=== PATIENT | female | born 1960 | race Caucasian/White ===

== ENCOUNTER → 2019-10-10 16:51 | Outpatient (BNVA) | payer OTHER, SELFPAY | PROVIDERS: Family Provider Family Medicine; PCP Family Medicine; Visit Provider Registered Nurse | DX: Z79.899 Other long term (current) drug therapy (principal) | CPT/HCPCS: 80061; 83036 ==

== ENCOUNTER 2019-11-06 05:55 | Day surgery (SDC) | payer MEDICARE, MEDICAID, SELFPAY ==
[2019-10-15 13:51] VITALS: BP 124/78; BMI 36.3
[2019-11-05 09:33] VITALS: BMI 35.9
[2019-11-06 06:21] VITALS: BP 119/73; PULSE 70; RESP 16; TEMP 36.6; O2SAT 98
[2019-11-06] MEDS: sodium chloride 0.9% 1,000 ML 30 ML (06:23)
--- NOTE | 2019-11-06 06:43 | ANES.PREANE2 ---
Pre-Anesthetic Assessment Pre-Anesthetic Assessment: Height/Weight: Height 1.66 m Weight 99.337 kg Temp Pulse Resp BP Pulse Ox 97.8 F 70 16 119/73 98 11/06/19 06:21 11/06/19 06:21 11/06/19 06:21 11/06/19 06:21 11/06/19 06:21 Preop Diagnosis: Persistent GERD Proposed Procedure: Operation Date: 11/06/19 07:00 Proposed Procedures p EGD(Not Applicable) - Dane Wilson MD Familial anesthetic complications: none Was Beta Toño taken within 24 hours: N/A Last intake: Intake Last Liquid Date 11/05/19 Last Liquid Time 20:00 Last Solid Date 11/05/19 Last Solid Time 20:00 Social: Social History: Tobacco (Quit in 2006) Exam: Pre-Anes Outpt Exam: alert, oriented x 3 and clear to auscultation bilaterally Airway: MP: 3 History/ROS: No significant history except as noted Pulmonary: Pulmonary: Sleep apnea (CPAP) CV/HEM: CV/HEM: HTN : : None reported Comments: bladder stimulator, for urinary retention placed 6 months ago Hepatic: Hepatic: None reported GI: GI: GERD Metabolic: Metabolic: Morbid obesity and Thyroid Musc/skel: Musc/skel: None reported Neuropsych: Neuropsych: CVA (2011, PTSD) and Seizure (2017 ) Anesthetic Plan: ASA status: 3 Anesthesia: Anesthesia Evaluation and MAC Risk of > 500 ml blood loss (7ml/kg in children): No PFSH Anesthesia PFSH: Social History Smoking and tobacco status: former smoker Quit status (tobacco): has quit using tobacco Second hand smoke exposure: No Smoking risk assessment/counseling performed?: No Alcohol intake: never Adopted: No Caregiver/support person: No Lives independently: Yes Marital status: Single Current occupational status: disabled History of recent travel: No Current gender identity: Female Data Anesthesia Cardiac Studies: No Data to Display
--- NOTE | 2019-11-06 06:54 | PM.HPUD ---
H&P update H&P Update: DATE OF SURGERY/PROCEDURE: 11/06/19 DATE H&P PERFORMED: 10/23/19 H&P UPDATE INFORMATION: H&P completed within last 30 days and No changes to prior documentation PREOP DIAGNOSIS: Persistent GERD PRIMARY INDICATION FOR PROCEDURE: The same PLANNED PROCEDURE: Operation Date: 11/06/19 07:00 Proposed Procedures p EGD(Not Applicable) - Dane Wilsno MD Full H&P Perinent History: Medical/Surgical History: Medical History (Updated 10/24/19 @ 17:06 by Dane Wilson MD) Depression (Acute) Disorder of bladder function (Acute) GERD (gastroesophageal reflux disease) (Acute) Hypercholesterolemia (Acute) Hypothyroidism (Acute) Neuropathy (Acute) PTSD (post-traumatic stress disorder) (Acute) Restless legs (Acute) Sleep apnea (Acute) Vitamin D deficiency (Acute) Family History: Family History (Updated 10/23/19 @ 15:07 by Melia Garcia LPN) Mother CAD (coronary artery disease) Brother CAD (coronary artery disease) Grandfather Diabetes Denies family history of Anesthesia complication Bleeding disorder Social History: Social History Smoking and tobacco status: former smoker Quit status (tobacco): has quit using tobacco Second hand smoke exposure: No Smoking risk assessment/counseling performed?: No Alcohol intake: never Adopted: No Caregiver/support person: No Lives independently: Yes Marital status: Single Current occupational status: disabled History of recent travel: No Current gender identity: Female
[2019-11-06 07:19] VITALS: BP 110/73; PULSE 73; RESP 16; TEMP 36.1; O2SAT 98
[2019-11-06 07:29] VITALS: BP 127/74; PULSE 77; RESP 16; O2SAT 100
--- NOTE | 2019-11-06 07:32 | ANE.PACU2 ---
 Inpatient post-anesthesia follow up: Airway intact: Yes Vital signs: Temperature 97 F Pulse Rate 73 Respiratory Rate 16 Blood Pressure 110/73 Pulse Oximetry 98 Oxygen Delivery Me thod Nasal Cannula Oxygen Flow Rate 3 Fraction of Inspir ed Oxygen Hydration adequate: Yes Nausea and vomiting: No Pain level: 2 Mental status: Baseline
[2019-11-06 07:40] VITALS: BP 122/80; PULSE 72; RESP 16; O2SAT 100
[2019-11-07 13:12] LABS: H. Pylori / CLO Test Negative
== END 2019-11-06 07:45 | disposition home or self-care (01) ==
PROVIDERS: Family Provider Family Medicine; PCP Family Medicine; Visit Provider Surgery
PROC: 0DJ08ZZ Inspection of Upper Intestinal Tract, Via Natural or Artificial Opening Endoscopic (ICD-10-PCS; CPT 43235; principal; 2019-11-06 07:00)
DX: K21.9 Gastro-esophageal reflux disease without esophagitis (principal); K29.70 Gastritis, unspecified, without bleeding; E78.00 Pure hypercholesterolemia, unspecified; E03.9 Hypothyroidism, unspecified; G47.30 Sleep apnea, unspecified; Z82.49 Family history of ischemic heart disease and other diseases of the circulatory system; Z83.3 Family history of diabetes mellitus; Z87.891 Personal history of nicotine dependence; Z79.82 Long term (current) use of aspirin
CPT/HCPCS: 12345; 43239; 87077; J2001; J2704; J7030

== ENCOUNTER → 2020-01-02 08:42 | Outpatient (BNVA) | payer MEDICARE, MEDICAID, SELFPAY | PROVIDERS: Family Provider Family Medicine; PCP Family Medicine; Visit Provider Family Medicine | DX: I10 Essential (primary) hypertension (principal) | CPT/HCPCS: 80048 ==

== ENCOUNTER → 2020-05-21 10:45 | Outpatient (BNVA) | payer MEDICARE, MEDICAID, SELFPAY ==
[2019-10-15 13:51] VITALS: BP 124/78; BMI 36.3
== END ==
PROVIDERS: Family Provider Family Medicine; PCP Family Medicine; Visit Provider Family Medicine
DX: E03.9 Hypothyroidism, unspecified (principal); R60.0 Localized edema; K29.70 Gastritis, unspecified, without bleeding; I10 Essential (primary) hypertension; R73.03 Prediabetes; M51.16 Intervertebral disc disorders with radiculopathy, lumbar region; F41.1 Generalized anxiety disorder; K21.0 Gastro-esophageal reflux disease with esophagitis; G25.81 Restless legs syndrome
CPT/HCPCS: 80053; 83036; 84439; 84443; 84481

== ENCOUNTER → 2020-08-26 09:58 | Outpatient (BNVA) | payer MEDICARE, SELFPAY ==
[2019-10-15 13:51] VITALS: BP 124/78; BMI 36.3
== END ==
PROVIDERS: Family Provider Family Medicine; PCP Family Medicine; Visit Provider Family Medicine
DX: I10 Essential (primary) hypertension (principal); M51.16 Intervertebral disc disorders with radiculopathy, lumbar region; K29.70 Gastritis, unspecified, without bleeding; R60.0 Localized edema; E03.9 Hypothyroidism, unspecified; E78.00 Pure hypercholesterolemia, unspecified; E11.9 Type 2 diabetes mellitus without complications
CPT/HCPCS: 80053; 80061; 83036; 84443

== ENCOUNTER → 2021-01-12 11:19 | Outpatient (BNVA) | payer MEDICARE, SELFPAY ==
[2019-10-15 13:51] VITALS: BP 124/78; BMI 36.3
== END ==
PROVIDERS: Family Provider Family Medicine; PCP Family Medicine; Visit Provider Family Medicine
DX: E55.9 Vitamin D deficiency, unspecified (principal); I10 Essential (primary) hypertension; E03.9 Hypothyroidism, unspecified; M51.16 Intervertebral disc disorders with radiculopathy, lumbar region; G25.81 Restless legs syndrome; R73.03 Prediabetes; R53.83 Other fatigue; J44.9 Chronic obstructive pulmonary disease, unspecified; R60.0 Localized edema; E87.6 Hypokalemia; K29.30 Chronic superficial gastritis without bleeding
CPT/HCPCS: 80053; 82652; 83036; 83540; 84443; 85025

== ENCOUNTER → 2021-02-15 12:01 | Outpatient (BNVA) | payer MEDICARE, SELFPAY ==
[2019-10-15 13:51] VITALS: BP 124/78; BMI 36.3
== END ==
PROVIDERS: Family Provider Family Medicine; PCP Family Medicine; Visit Provider Family Medicine
DX: I10 Essential (primary) hypertension (principal); K29.70 Gastritis, unspecified, without bleeding; G25.81 Restless legs syndrome; E03.9 Hypothyroidism, unspecified; E55.9 Vitamin D deficiency, unspecified; Z79.899 Other long term (current) drug therapy
CPT/HCPCS: 80053; 83540; 84443

== ENCOUNTER → 2021-03-08 10:40 | Outpatient (BNVA) | payer MEDICARE, SELFPAY ==
[2019-10-15 13:51] VITALS: BP 124/78; BMI 36.3
== END ==
PROVIDERS: Family Provider Family Medicine; PCP Family Medicine; Referring Provider Family Medicine; Visit Provider Family Medicine
DX: I10 Essential (primary) hypertension (principal); R60.0 Localized edema
CPT/HCPCS: 80048

== ENCOUNTER → 2021-04-13 10:45 | Outpatient (BNVA) | payer MEDICARE, SELFPAY ==
[2019-10-15 13:51] VITALS: BP 124/78; BMI 36.3
== END ==
PROVIDERS: Family Provider Family Medicine; PCP Family Medicine; Visit Provider Family Medicine
DX: M51.16 Intervertebral disc disorders with radiculopathy, lumbar region (principal); N32.81 Overactive bladder; Z79.899 Other long term (current) drug therapy
CPT/HCPCS: 81000; 87086

== ENCOUNTER 2021-04-26 15:38 | Outpatient (CLI) | payer MEDICARE, MEDICAID, SELFPAY ==
[2019-10-15 13:51] VITALS: BP 124/78; BMI 36.3
--- NOTE | 2021-04-26 16:00 | MR_ITS ---
WS: [id number] MRI LUMBAR SPINE NONCONTRAST HISTORY: M51.16 - Intervertebral disc disorders with radiculopathy... COMPARISON: None available. TECHNIQUE: Sagittal and axial multisequence imaging is submitted. Mild increase in the thoracic kyphosis. Very slight straightening of the normal lumbar lordosis. No marrow edema or fractures. Mild disc space narrowing and desiccation. Conus terminates normally at L1-2 disc level. L1-L2: Normal. L2-L3: Normal. L3-L4: Mild annular disc bulging with ligamentum flavum and facet joint arthritis. Small amount of fl uid in the RIGHT facet joint. Very slight encroachment and narrowing of the LEFT foramen. L4-L5: Diffuse annular disc bulging with moderate ligamentum flavum and facet arthritis with fluid in the facet joints. Narrowing of the central canal and subarticular foramen and mild bilateral foramin al stenosis. There is a small RIGHT foraminal disc protrusion which does not appear to be contacting the nerve roots. L5-S1: Diffuse annular disc bulging with moderate ligamentum flavum hypertrophy and facet arthritis. Moderate LEFT and mild RIGHT foraminal stenosis. Mild bilateral subarticular recess stenosis. Increas e fluid in the facet joints bilaterally. 3.2 cm cystic mass in the LEFT adnexa. Incompletely visualized. For further evaluation transvaginal p elvic ultrasound could be obtained. MR/MR lumbar spine wo con* [id number] IMPRESSION: 1. Degenerative disc disease and facet arthritis is most significant at L4-5 a nd L5-S1. 2. Moderate RIGHT foraminal stenosis at L5-S1 due to combination of disc disea se and facet arthritis. 3. Mild bilateral subarticular recess and RIGHT foraminal stenosis at L5-S1. 4. Mild central and bilateral subarticular recess and foraminal stenosis at L4 -5. 5. Small disc protrusion in the RIGHT L4-5 foramen but no contact on the nerve root.
== END 2021-04-26 15:39 | disposition home or self-care (01) ==
LOC: RADSHAW 15:42
PROVIDERS: PCP Family Medicine; Visit Provider Family Medicine
DX: M51.16 Intervertebral disc disorders with radiculopathy, lumbar region (principal); M51.36 Other intervertebral disc degeneration, lumbar region; M47.816 Spondylosis without myelopathy or radiculopathy, lumbar region; M47.817 Spondylosis without myelopathy or radiculopathy, lumbosacral region; M48.07 Spinal stenosis, lumbosacral region; M51.26 Other intervertebral disc displacement, lumbar region
CPT/HCPCS: 72148

== ENCOUNTER → 2021-05-20 08:00 | Outpatient (BNVA) | payer MEDICARE, MEDICAID, SELFPAY ==
[2019-10-15 13:51] VITALS: BP 124/78; BMI 36.3
== END ==
PROVIDERS: PCP Family Medicine; Referring Provider Family Medicine; Visit Provider Anesthesiology Pain Medicine
DX: G89.29 Other chronic pain (principal); M51.16 Intervertebral disc disorders with radiculopathy, lumbar region; M47.816 Spondylosis without myelopathy or radiculopathy, lumbar region; M46.00 Spinal enthesopathy, site unspecified; F17.210 Nicotine dependence, cigarettes, uncomplicated; Z79.891 Long term (current) use of opiate analgesic
CPT/HCPCS: 99204

== ENCOUNTER → 2021-06-01 13:32 | Outpatient (BNVA) | payer MEDICARE, MEDICAID, SELFPAY ==
[2019-10-15 13:51] VITALS: BP 124/78; BMI 36.3
== END ==
PROVIDERS: PCP Family Medicine; Visit Provider Anesthesiology Pain Medicine
DX: M47.816 Spondylosis without myelopathy or radiculopathy, lumbar region (principal)
CPT/HCPCS: 64493; 64494; 64495; J3490

== ENCOUNTER → 2021-06-15 09:43 | Outpatient (BNVA) | payer MEDICARE, MEDICAID, SELFPAY ==
[2019-10-15 13:51] VITALS: BP 124/78; BMI 36.3
== END ==
PROVIDERS: PCP Family Medicine; Visit Provider Anesthesiology Pain Medicine
DX: M47.816 Spondylosis without myelopathy or radiculopathy, lumbar region (principal); M51.16 Intervertebral disc disorders with radiculopathy, lumbar region; M46.00 Spinal enthesopathy, site unspecified; F17.210 Nicotine dependence, cigarettes, uncomplicated
CPT/HCPCS: 99214

== ENCOUNTER → 2021-06-22 13:25 | Outpatient (BNVA) | payer MEDICARE, MEDICAID, SELFPAY ==
[2019-10-15 13:51] VITALS: BP 124/78; BMI 36.3
== END ==
PROVIDERS: PCP Family Medicine; Visit Provider Anesthesiology Pain Medicine
DX: M47.816 Spondylosis without myelopathy or radiculopathy, lumbar region (principal)
CPT/HCPCS: 64635; 64636

== ENCOUNTER → 2021-08-09 10:46 | Outpatient (BNVA) | payer MEDICARE, MEDICAID, SELFPAY ==
[2019-10-15 13:51] VITALS: BP 124/78; BMI 36.3
== END ==
PROVIDERS: PCP Family Medicine; Visit Provider Family Medicine
DX: R53.83 Other fatigue (principal); E55.9 Vitamin D deficiency, unspecified; E78.00 Pure hypercholesterolemia, unspecified; E11.9 Type 2 diabetes mellitus without complications; I10 Essential (primary) hypertension
CPT/HCPCS: 80053; 80061; 82652; 83036; 84443

== ENCOUNTER → 2022-03-01 08:54 | Outpatient (BNVA) | payer MEDICARE, MEDICAID, SELFPAY ==
[2019-10-15 13:51] VITALS: BP 124/78; BMI 36.3
== END ==
PROVIDERS: PCP Family Medicine; Visit Provider Family Medicine
DX: N32.81 Overactive bladder (principal); N39.41 Urge incontinence; G25.81 Restless legs syndrome; E87.6 Hypokalemia; K29.70 Gastritis, unspecified, without bleeding; I10 Essential (primary) hypertension; E03.9 Hypothyroidism, unspecified; R60.0 Localized edema; E55.9 Vitamin D deficiency, unspecified; M51.16 Intervertebral disc disorders with radiculopathy, lumbar region; R73.03 Prediabetes; F17.200 Nicotine dependence, unspecified, uncomplicated
CPT/HCPCS: 80053; 81000; 83036; 84443; 87086

== ENCOUNTER → 2022-04-20 09:00 | Outpatient (BNVA) | payer MEDICARE, MEDICAID, OTHER, SELFPAY ==
[2019-10-15 13:51] VITALS: BP 124/78; BMI 36.3
== END ==
PROVIDERS: PCP Family Medicine; Visit Provider Family Medicine
DX: E87.1 Hypo-osmolality and hyponatremia (principal)
CPT/HCPCS: 80048

== ENCOUNTER → 2022-07-28 10:58 | Outpatient (BNVA) | payer OTHER, MEDICAID, SELFPAY ==
[2019-10-15 13:51] VITALS: BP 124/78; BMI 36.3
== END ==
PROVIDERS: PCP Family Medicine; Visit Provider Family Medicine
DX: G25.81 Restless legs syndrome (principal); E87.6 Hypokalemia; N32.81 Overactive bladder; F41.1 Generalized anxiety disorder; F43.12 Post-traumatic stress disorder, chronic; F33.2 Major depressive disorder, recurrent severe without psychotic features; K29.70 Gastritis, unspecified, without bleeding; I10 Essential (primary) hypertension; E03.9 Hypothyroidism, unspecified; R60.0 Localized edema; J44.0 Chronic obstructive pulmonary disease with (acute) lower respiratory infection; G47.00 Insomnia, unspecified; J20.9 Acute bronchitis, unspecified; M51.16 Intervertebral disc disorders with radiculopathy, lumbar region; J44.9 Chronic obstructive pulmonary disease, unspecified; E87.1 Hypo-osmolality and hyponatremia; E11.9 Type 2 diabetes mellitus without complications; R73.03 Prediabetes; E78.00 Pure hypercholesterolemia, unspecified
CPT/HCPCS: 71046; 80061; 83036; 84439; 84443; 84481; 85025

== ENCOUNTER → 2022-09-14 08:36 | Outpatient (BNVA) | payer OTHER, MEDICAID, SELFPAY ==
[2019-10-15 13:51] VITALS: BP 124/78; BMI 36.3
== END ==
PROVIDERS: PCP Family Medicine; Visit Provider Family Medicine
DX: E87.1 Hypo-osmolality and hyponatremia (principal); E87.6 Hypokalemia; I10 Essential (primary) hypertension; Z09 Encounter for follow-up examination after completed treatment for conditions other than malignant neoplasm; J44.0 Chronic obstructive pulmonary disease with (acute) lower respiratory infection; J20.9 Acute bronchitis, unspecified; F33.2 Major depressive disorder, recurrent severe without psychotic features; F43.12 Post-traumatic stress disorder, chronic; F41.1 Generalized anxiety disorder
CPT/HCPCS: 80048; 83735

== ENCOUNTER → 2022-09-28 09:46 | Outpatient (BNVA) | payer OTHER, MEDICAID, SELFPAY ==
[2019-10-15 13:51] VITALS: BP 124/78; BMI 36.3
== END ==
PROVIDERS: PCP Family Medicine; Visit Provider Family Medicine
DX: E87.1 Hypo-osmolality and hyponatremia (principal); J44.0 Chronic obstructive pulmonary disease with (acute) lower respiratory infection; J20.9 Acute bronchitis, unspecified; E87.6 Hypokalemia; I10 Essential (primary) hypertension
CPT/HCPCS: 80048

== ENCOUNTER → 2022-10-18 10:58 | Outpatient (BNVA) | payer OTHER, MEDICAID, SELFPAY ==
[2019-10-15 13:51] VITALS: BP 124/78; BMI 36.3
== END ==
PROVIDERS: PCP Family Medicine; Visit Provider Family Medicine
DX: R60.0 Localized edema (principal); E87.1 Hypo-osmolality and hyponatremia; M79.672 Pain in left foot; M79.671 Pain in right foot; B07.0 Plantar wart
CPT/HCPCS: 80048; 80053

== ENCOUNTER 2022-10-28 06:00 | Outpatient (RCR) | payer MEDICARE, MEDICAID, SELFPAY ==
[2019-10-15 13:51] VITALS: BP 124/78; BMI 36.3
== END 2022-11-22 23:59 | disposition home or self-care (01) ==
LOC: MOT 06:00
PROVIDERS: PCP Family Medicine; Visit Provider Family Medicine
DX: R60.0 Localized edema (principal)
CPT/HCPCS: 97140; 97166

== ENCOUNTER → 2022-11-04 08:40 | Outpatient (BNVA) | payer OTHER, MEDICAID, SELFPAY ==
[2019-10-15 13:51] VITALS: BP 124/78; BMI 36.3
== END ==
PROVIDERS: PCP Family Medicine; Visit Provider Podiatrist Foot & Ankle Surgery
DX: Q82.8 Other specified congenital malformations of skin (principal); M20.32 Hallux varus (acquired), left foot; M20.41 Other hammer toe(s) (acquired), right foot; M20.42 Other hammer toe(s) (acquired), left foot; B35.1 Tinea unguium
CPT/HCPCS: 73630

== ENCOUNTER → 2022-11-18 09:30 | Outpatient (BNVA) | payer MEDICAID, SELFPAY ==
[2019-10-15 13:51] VITALS: BP 124/78; BMI 36.3
== END ==
PROVIDERS: PCP Family Medicine; Visit Provider Podiatrist Foot & Ankle Surgery
DX: Q82.8 Other specified congenital malformations of skin (principal); M20.30 Hallux varus (acquired), unspecified foot; M20.41 Other hammer toe(s) (acquired), right foot; M20.42 Other hammer toe(s) (acquired), left foot; B35.1 Tinea unguium
CPT/HCPCS: 99214

== ENCOUNTER 2024-04-26 10:40 | Emergency (ER) | payer MEDICARE, MEDICAID, SELFPAY ==
[2019-10-15 13:51] VITALS: BP 124/78; BMI 36.3
[2024-04-26 10:42] VITALS: BP 127/60; PULSE 70; RESP 20; TEMP 36.5; O2SAT 98; BMI 35.6
--- NOTE | 2024-04-26 10:45 | XR_ITS ---
WS: [id number] Portable AP upright chest, 04/26/2024 Clinical Data: dyspnea/cough Comparison: Two-view chest, 07/28/2022 Findings: There is a patchy opacity in the left lower lobe which could represent atelectasis, effusio n and/or minimal pneumonia. No nodules, masses or effusions are seen. The heart is normal. The pulmon evelyne vascularity is not increased. No pneumonia or pneumothorax is seen. There are monitor leads on th e chest wall. XR/XR chest 1V portable [id number] Impression: Minimal patchy opacity overlying lateral aspect of left diaphragm which could i ndicate atelectasis, effusion and/or minimal pneumonia.
--- NOTE | 2024-04-26 10:47 | ECG_ITS ---
[facility] Test Date: 2024-04-26 Pat Name: Kirsty Lee Department: Room: Gender: Female Head Teacher: : 1960 Requested By: Shaun James Order Number: [id number] Roxane MD: George Reynolds M.D. Measurements Intervals [place] Rate: 71 P: 45 IN: 157 QRS: -9 QRSD: 89 T: 49 QT: 404 QTc: 441 Interpretive Statements SINUS RHYTHM LOW QRS VOLTAGE IN PRECORDIAL LEADS [QRS DEFLECTION < 1.0 mV IN CHEST LEADS] PATTERN CONSISTENT WITH PULMONARY DISEASE Compared to ECG 01/29/2018 14:15:40 Low QRS voltage now present T-wave abnormality no longer present Electronically Signed On 04-26-2024 17:34:43 CDT by George Reynolds M.D. [id number]
--- NOTE | 2024-04-26 11:05 | W.ED.CHESTPA ---
HPI - Chest Pain General: Chief Complaint: Chest Pain Stated Complaint: cp Time Seen by Provider: 04/26/24 10:44 History of Present Illness: 64-year-old female presents emergency room with episode and is SVT. She was given Identicard by EMS she had reverted to a normal sinus rhythm by time she arrived having no further symptoms. She does drink a fair amount of caffeine chills been in and out of air conditioning and out in the heat quite a little bit recently. The last episode she had a breakthrough was over a year ago. She is on Cardizem to 40 once a day that has not changed she has not missed any doses Associated symptoms: Deny abdominal pain, dyspnea or fever(s) Review of Systems Const: Denies: fever(s) or chills Card: Denies: chest pain Resp: Denies: dyspnea GI: Denies: abdominal pain : Denies: dysuria, urinary frequency or urinary urgency Musc: Denies: neck pain or back pain Skin/Breast: Denies: rash PFSH ED PFSH: Medical History Nicotine dependence, cigarettes, with withdrawal COPD (chronic obstructive pulmonary disease) with acute bronchitis Nicotine dependence with current use Smoking Chronic pain syndrome Lumbar disc disease with radiculopathy Pedal edema Essential hypertension Major neurocognitive disorder post-CVA Generalized anxiety disorder Chronic post-traumatic stress disorder Major depressive disorder, recurrent severe without psychotic features Hypercholesterolemia Sleep apnea Depression PTSD (post-traumatic stress disorder) Vitamin D deficiency Hypothyroidism Neuropathy GERD (gastroesophageal reflux disease) Restless legs Disorder of bladder function Surgical History H/O bladder repair surgery implanted pacemaker device H/O: hysterectomy Hx of cholecystectomy H/O foot surgery bilateral Hx of tonsillectomy History of appendectomy H/O colonoscopy 2 yrs ago [facility] Family History Mother CAD (coronary artery disease) Brother CAD (coronary artery disease) Grandfather Diabetes Sister Myocardial infarction Denies family history of Anesthesia complication Bleeding disorder Social History Smoking and tobacco/nicotine status: current every day tobacco/nicotine user Quit status (tobacco/nicotine): has quit using Second hand smoke exposure: No Alcohol intake: never Substance/Drug Use: never Adopted: No Caregiver/support person: No Lives independently: Yes Marital status: Single Current occupational status: disabled Current gender identity: Female Female Reproductive History: Spontaneous abortions: No Physical Exam Const: GENERAL APPEARANCE: cooperative and comfortable ORIENTATION/CONSCIOUSNESS: Yes awake, Yes oriented to person, Yes oriented to place and Yes oriented to time HENMT: COMMON NORMALS: normocephalic, atraumatic and hearing grossly normal bilaterally HEAD & SCALP: normocephalic and atraumatic Resp: COMMON NORMALS: normal respiratory effort, No retractions, No use of accessory muscles and clear to auscultation bilaterally AUSCULTATION: clear to auscultation bilaterally Cardio: COMMON NORMALS: regular rate, regular rhythm and No murmurs present (Cardio) RATE: regular rate RHYTHM: regular rhythm GI: COMMON NORMALS: Soft to palpation and No hepatosplenomegaly present AUSCULTATION: Yes normoactive bowel sounds PALPATION: Yes Soft to palpation, No Tenderness to palpation present (GI), No Guarding due to palpation present (GI) and Yes No hepatosplenomegaly present Extremity: COMMON NORMALS: normal to inspection, capillary refill normal, no clubbing, cyanosis or edema, no calf tenderness and no pedal edema Neuro: SENSORIUM/ORIENTATION: Yes oriented to person, Yes oriented to place and Yes oriented to time Skin: COMMON NORMALS: no rashes or lesions noted GENERAL SKIN EXAM: no rashes or lesions noted Course Vital Signs: Vital signs: Vital Signs Temperature 97.7 F 04/26/24 10:42 Pulse Rate 84 04/26/24 16:29 Respiratory Rate 24 H 04/26/24 16:29 Blood Pressure 162/90 04/26/24 16:29 Pulse Oximetry 96 04/26/24 16:29 Oxygen Delivery Me thod Room Air 04/26/24 10:42 MDM - Chest Pain Medical Decision Making Initially patient presented she is complaining of some weakness on the right side that was about an hour prior. When she seen Dr. Parks after the stroke alert had been called she states she woke up with it. In either event her symptoms are completely resolved. Her NIH score for Dr. Parks and Duglas was 0. Cardiac enzymes and EKG did not show any acute abnormality discharge patient home set her up for an outpatient MRI as well as Lexiscan sestamibi stress test. Lab Data 04/26/24 12:07 04/26/24 12:07 Radiology Impressions Chest X-Ray 04/26/24 10:45 Impression: Minimal patchy opacity overlying lateral aspect of left diaphragm which could indicate atelectasis, effusion and/or minimal pneumonia. Head CT 04/26/24 11:11 IMPRESSION: 1. No evidence of intracranial hemorrhage or mass effect. 2. No acute intracranial findings. Notified Shaun Downey DO at 04/26/2024 11:25 AM. Laboratory Results WBC 7.81 10^3/uL (3.29-11.43) 04/26/24 12:07 RBC 4.87 10^6/uL (3.85-5.65) 04/26/24 12:07 Hgb 10.90 g/dL (11.27-16.99) L 04/26/24 12:07 Hct 35.5 % (36-47) L 04/26/24 12:07 MCV 72.9 fl (85-98) L 04/26/24 12:07 MCH 22.4 pg (27-33) L 04/26/24 12:07 MCHC 30.7 g/dL (30-55) 04/26/24 12:07 RDW 19.4 % (12.1-15.1) H 04/26/24 12:07 Plt Count 272 10^3/cmm (157-399) 04/26/24 12:07 MPV 9.8 fL (7.4-10.4) 04/26/24 12:07 Neut % (Auto) 70.5 % 04/26/24 12:07 Lymph % (Auto) 22.0 % 04/26/24 12:07 [place] % (Auto) 5.4 % 04/26/24 12:07 Eos % (Auto) 1.0 % 04/26/24 12:07 Baso % (Auto) 0.8 % 04/26/24 12:07 Neut # (Auto) 5.51 10^3/uL (1.8-7.7) 04/26/24 12:07 Lymph # (Auto) 1.7 10^3/uL (0.8-4.8) 04/26/24 12:07 Jess[place] # (Auto) 0.4 10^3/uL (0.2-0.9) 04/26/24 12:07 Eos # (Auto) 0.1 10^3/uL (0.0-0.8) 04/26/24 12:07 Baso # (Auto) 0.1 10^3/uL (0.0-0.1) 04/26/24 12:07 Nucleated RBC % (auto) 0 % 04/26/24 12:07 Nucleated RBCs # 0.0 /100WBC 04/26/24 12:07 PT 12.20 SECONDS (12.1-14.9) 04/26/24 12:07 INR 0.88 (0.8-1.2) 04/26/24 12:07 APTT 19.7 SECONDS (23.9-36.7) L 04/26/24 12:07 Sodium 134 mmol/L (136-145) L 04/26/24 12:07 Potassium 4.1 mmol/L (3.5-5.1) 04/26/24 12:07 Chloride 98 mmol/L (98-107) 04/26/24 12:07 Carbon Dioxide 23 mmol/L (22-29) 04/26/24 12:07 Anion Gap 17.1 (5-19) 04/26/24 12:07 BUN 10 mg/dL (8-23) 04/26/24 12:07 Creatinine 0.7 mg/dL (0.5-0.9) 04/26/24 12:07 GFR Calculation 83.7 mL/min (90-130) L 04/26/24 12:07 Glucose 105 mg/dL (65-115) 04/26/24 12:07 POC Glucose 209 mg/dL (70-110) H 04/26/24 11:23 Calculated Osmolality 277 mOsm/kg (285-295) L 04/26/24 12:07 Calcium 8.9 mg/dL (8.5-10.5) 04/26/24 12:07 Total Bilirubin 0.2 mg/dL (0.15-1.2) 04/26/24 12:07 AST 16 U/L (0-32) 04/26/24 12:07 ALT 22 U/L (0-33) 04/26/24 12:07 Alkaline Phosphatase 141 U/L (35-105) H 04/26/24 12:07 Troponin T Baseline 15 ng/L (0-10) H 04/26/24 12:07 Troponin T 120 Minute 13.90 ng/L (0-10) H 04/26/24 14:13 Delta Troponin T -1.10 ABS# (0-10) L 04/26/24 14:13 Total Protein 6.6 g/dL (6.6-8.7) 04/26/24 12:07 Albumin 4.2 g/dL (3.5-5.2) 04/26/24 12:07 Globulin 2.4 g/dL (1.3-4.6) 04/26/24 12:07 Urine Color Yellow (Yellow) 04/26/24 11:57 Urine Appearance Clear (CLEAR) 04/26/24 11:57 Urine pH 7.0 (5-7) 04/26/24 11:57 Ur Specific [place] 1.006 (1.005-1.030) 04/26/24 11:57 Urine Protein Negative (Negative) 04/26/24 11:57 Urine Glucose (UA) Negative (Normal) 04/26/24 11:57 Urine Ketones Negative (Negative) 04/26/24 11:57 Urine Blood Negative (Negative) 04/26/24 11:57 Urine Nitrate Negative (Negative) 04/26/24 11:57 Urine Bilirubin Negative (Negative) 04/26/24 11:57 Urine Urobilinogen 0.2 mg/dL (Negative) 04/26/24 11:57 Ur Leukocyte Esterase Negative (Negative) 04/26/24 11:57 Amorphous Sediment Not Reportable 04/26/24 11:57 Urine Opiates Screen Negative ng/mL (Negative) 04/26/24 11:57 Ur Barbiturates Screen Negative ng/mL (Negative) 04/26/24 11:57 Ur Phencyclidine Scrn Negative ng/mL (Negative) 04/26/24 11:57 Ur Amphetamines Screen Negative ng/mL (Negative) 04/26/24 11:57 U Benzodiazepines Scrn Negative ng/mL (Negative) 04/26/24 11:57 Urine Cocaine Screen Negative ng/mL (Negative) 04/26/24 11:57 U Marijuana (THC) Screen Positive ng/mL (Negative) H 04/26/24 11:57 All radiology interpretation(s) finalized by discharge Discharge Plan Discharge Patient Disposition: Home Clinical Impression: Atypical chest pain, TIA (transient ischemic attack) Condition: Stable Prescriptions: New clopidogrel 75 mg tablet 75 mg PO DAILY Qty: 30 0RF atorvastatin 40 mg tablet 40 mg PO DAILY Qty: 30 0RF Discontinued atorvastatin [Lipitor] 20 mg tablet 20 mg PO DAILY 90 Days Qty: 90 3RF No Action aspirin [Adult Aspirin Regimen] 81 mg tablet,delayed release (DR/EC) 81 mg PO DAILY Hold Instructions: Resume on 11/08/19. oxybutynin chloride 10 mg tablet extended release 24hr 10 mg PO DAILY 90 Days Qty: 90 1RF pregabalin 75 mg capsule 75 mg PO TID PRN (Reason: back pain) 30 Days Qty: 90 2RF furosemide 40 mg tablet 40 mg PO BID 90 Days Qty: 180 2RF Rx Instructions: at 8 AM and 12 NOON meclizine 25 mg tablet 25 mg PO TID PRN (Reason: Dizziness Or Vertigo) (DME) Wheel Chair with Left Leg Extension Foot Rest and Regular Right Foot Rest and Arms See Rx Instructions .Route .MEDSUPPLY Qty: 1 0RF Rx Instructions: As directed HOME famotidine 20 mg tablet 40 mg PO BID levothyroxine 50 mcg tablet 50 mcg PO DAILY pramipexole 0.25 mg tablet 0.25 mg PO BEDTIME omeprazole 20 mg capsule,delayed release(DR/EC) 20 mg PO BID metoprolol succinate 25 mg tablet extended release 24 hr 25 mg PO DAILY celecoxib 200 mg capsule 200 mg PO DAILY venlafaxine 75 mg capsule,extended release 24hr 75 mg PO DAILY tramadol 50 mg tablet 50 - 100 mg PO Q6H PRN (Reason: Pain) Ventolin HFA 90 mcg/actuation HFA aerosol inhaler 1 puff INHALATION QID PRN (Reason: Shortness Of Breath) diclofenac sodium 1 % gel 4 g TOPICAL Q12H PRN (Reason: JOINT PAIN) Discharge Orders: Discharge ED (Routine); Ordered 04/26/24 Ordered By: Shaun Downey Referrals: Michelle Russell MD [Physician] - Discharge Diet: Usual diet Discharge Activity: Resume usual activity Patient Instructions: Opioid Safety, Pain Management Activity Restrictions/Additional Instructions: Thank you for choosing [facility] for your healthcare needs today. It is very important that you follow up as instructed or that you return to the Emergency Department should you have concerns or if your condition changes or worsens in any way. You are seen due to chest pain and weakening your left side. I believe the weakening was due to previous stroke. When examined your score was 0 on the NIH scale. Rest of your exam was normal your cardiac enzymes were negative. You were also evaluated by on-call neurology who did not feel that your findings represented a new stroke. Cardiac enzymes and EKG were normal. Coding Level of Care Code ED Recycling Crew Supervisor for Zachary Tay NIH stroke score NIHSS Level Of Consciousness - 1a: 0 Level Of Consciousness Questions - 1b: Both Correct Level Of Consciousness Commands - 1c: Both Correct Best Gaze - 2: Normal Visual Toussaint - 3: No Visual Loss Facial Palsy - 4: Normal Motor Arm Right - 5: No Drift Motor Arm Left - 5: No Drift Motor Leg Right - 6: No Drift Motor Leg Left - 6: No Drift Limb Ataxia - 7: Absent Sensory - 8: Normal Best Language - 9: No Aphasia Dysarthia - 10: Normal Extinction And Inattention - 11: 0 Score Total Score: 0
--- NOTE | 2024-04-26 11:11 | CT_ITS ---
WS: [id number] CT HEAD TECHNIQUE: Noncontrast CT of the head obtained from the skullbase to the vertex. CLINICAL INFORMATION: Symptoms of acute stroke COMPARISON: None. DLP: All [facility] scans at [facility] use at least one of these dose optimization techniques: automated e xposure control; mA and/or kV adjustment per patient size (includes targeted exams where dose is matc hed to clinical indication); or iterative reconstruction. FINDINGS: No evidence of intracranial hemorrhage or mass effect. Ventricular system and basal cisterns are crooks nt. Moderate small vessel changes with mild parenchymal volume loss. No extra-axial fluid collections . No evidence of mass or mass effect. Vascular calcification. Tiny chronic lacunar infarct LEFT cauda te. Paranasal sinuses and mastoid air cells are well aerated. .Normal visualized soft tissues. CT/CT head thrombolytic [id number] IMPRESSION: 1. No evidence of intracranial hemorrhage or mass effect. 2. No acute intracranial findings. Notified Shaun Downey DO at 04/26/2024 11:25 AM.
[2024-04-26 11:25] LABS: Glucose Point of Care 209 mg/dL (70-110)
--- NOTE | 2024-04-26 11:37 | PC.PHAR ---
Addendum entered by Lindsye Dennis 04/26/24 11:38: PT USES [facility] FOR NON MAINTENANCE MEDICATIONS. Original Note: PTS' MED LIST COMPLETED VIA MED LIST VERIFIED WITH MARIANNA, WITH LAST FILL DATES IN PHARMACY NOTES. UNSURE IF PT HAS TAKEN AM MEDS TODAY. WILL FOLLOW UP.
--- NOTE | 2024-04-26 11:59 | P.CONIM_ITS ---
Providers/Reason For Consult Consulting Physician/Specialty*: Santiago Parks MD neurology and epilepsy Reason for Consult*: Code stroke emergency department room #5/acute care History of Present Illness History of Present Illness Kirsty Lee is a 64 year old female with reported history of stroke in 2013. Patient also reports history of bilateral foot surgery with screws in the right foot and amputation of the second digit of the left foot as well as history of chronic arthritis pain in her feet. The patient stated that she went to bed on 04/25/2024 around midnight and woke up on 04/26/2024 around 5:45 AM and noticed she had numbness in the left foot. Patient stated that she went outside to walk her dog but began having more numbness in the left foot as well as left-sided chest pain with left arm numbness. As result the patient presented to the [facility] emergency department. On initial presentation to the emergency department NIH score =2 performed by ER physician. The patient was given nitroglycerin with him improvement in her symptoms NIH score = 0 performed by neurology in the emergency department. Noncontrast head CT reports revealed no acute findings. Glucose 209. Drug allergies: Penicillin which resulted in anaphylaxis Current home medications: Ventolin multidose inhaler 1 puff 4 times a day as needed for shortness of Aspirin 81 mg p.o. daily Lipitor 20 mg p.o. daily Celebrex 200 mg p.o. daily Diclofenac 4 g topical every 12 hours as needed for joint pain Pepcid 40 mg p.o. twice daily Lasix 40 mg p.o. twice daily Synthroid 50 mcg p.o. daily Antivert 25 mg p.o. 3 times daily as needed for dizziness Metoprolol 25 mg p.o. daily Omeprazole 20 mg p.o. twice daily Oxybutynin chloride ER 10 mg p.o. daily Pramipexole 0.25 mg p.o. nightly Lyrica 75 mg p.o. 3 times daily as needed for back pain Tramadol 50 to 100 mg p.o. every 6 hours as needed for pain Effexor 75 mg p.o. daily Past medical history: Bilateral foot surgery with amputation of the second digit of the left foot Chronic low back pain Arthritis Hypothyroidism Remote CVA 2013 Chronic obstructive pulmonary disease Hyponatremia Nicotine dependence Vitamin D deficiency Lumbar disc disease with radiculopathy Restless leg syndrome Hypercholesterolemia Gastroesophageal reflux disease Prediabetes Essential hypertension Major neurocognitive disorder Generalized anxiety disorder Chronic posttraumatic stress disorder Major depressive disorder recurrent severe without psychotic features Gastritis Habits: The patient smokes 1 pack/day. She denied other drug use. Patient educated on the potential health risks associated with smoking. Patient aware of the potential health risks associated with smoking. Social history: Patient lives alone Family history: Remarkable for sister who of a massive heart attack Review of Systems General: Reports: 10 or more systems reviewed and unremarkable except in HPI and below Medications/Allergies Home Medications Medication Instructions Recorded Confirmed Last Taken Type aspirin 81 mg tablet,delayed 81 mg PO DAILY 10/14/19 04/26/24 11/30/22 History release (Adult Aspirin Regimen) atorvastatin 20 mg tablet (Lipitor) 20 mg PO DAILY 90 days #90 tabs 07/28/22 04/26/24 11/30/22 Rx oxybutynin chloride 10 mg 10 mg PO DAILY 90 days #90 tabs 07/28/22 04/26/24 11/30/22 Rx tablet,extended release 24 hr furosemide 40 mg tablet 40 mg PO BID 90 days #180 tabs 11/17/22 04/26/24 11/30/22 Rx pregabalin 75 mg capsule 75 mg PO TID PRN back pain 30 days 11/17/22 04/26/24 11/30/22 Rx #90 caps Wheel Chair with Left Leg #1 ea 11/23/22 04/26/24 Unknown Rx Extension Foot Rest and Regular Right Foot Rest and Arms famotidine 20 mg tablet 40 mg PO BID 11/23/22 04/26/24 11/30/22 History levothyroxine 50 mcg tablet 50 mcg PO DAILY 11/23/22 04/26/24 11/30/22 History metoprolol succinate 25 mg 25 mg PO DAILY 11/23/22 04/26/24 11/30/22 History tablet,extended release 24 hr omeprazole 20 mg capsule,delayed 20 mg PO BID 11/23/22 04/26/24 11/30/22 History release pramipexole 0.25 mg tablet 0.25 mg PO BEDTIME 11/23/22 04/26/24 11/30/22 History meclizine 25 mg tablet 25 mg PO TID PRN Dizziness Or 03/31/23 04/26/24 Unknown History Vertigo albuterol sulfate 90 mcg/actuation 1 puff inhalation QID PRN 04/26/24 04/26/24 Unknown History aerosol inhaler (Ventolin HFA) Shortness Of Breath celecoxib 200 mg capsule 200 mg PO DAILY 04/26/24 04/26/24 Unknown History diclofenac sodium 1 % topical gel 4 g topical Q12H PRN JOINT PAIN 04/26/24 04/26/24 Unknown History tramadol 50 mg tablet 50 - 100 mg PO Q6H PRN Pain 04/26/24 04/26/24 Unknown History venlafaxine 75 mg capsule,extended 75 mg PO DAILY 04/26/24 04/26/24 Unknown History release 24 hr Allergies Allergy/AdvReac Type Severity Reaction Status Date / Time Penicillins Allergy ALGY-Anaphy Verified 04/26/24 10:53 laxis PFSH Acute PFSH: Medical History Nicotine dependence, cigarettes, with withdrawal COPD (chronic obstructive pulmonary disease) with acute bronchitis Nicotine dependence with current use Smoking Chronic pain syndrome Lumbar disc disease with radiculopathy Pedal edema Essential hypertension Major neurocognitive disorder post-CVA Generalized anxiety disorder Chronic post-traumatic stress disorder Major depressive disorder, recurrent severe without psychotic features Hypercholesterolemia Sleep apnea Depression PTSD (post-traumatic stress disorder) Vitamin D deficiency Hypothyroidism Neuropathy GERD (gastroesophageal reflux disease) Restless legs Disorder of bladder function Surgical History H/O bladder repair surgery implanted pacemaker device H/O: hysterectomy Hx of cholecystectomy H/O foot surgery bilateral Hx of tonsillectomy History of appendectomy [facility] [place] Family History Mother CAD (coronary artery disease) Brother CAD (coronary artery disease) Grandfather Diabetes Sister Myocardial infarction Denies family history of Anesthesia complication Bleeding disorder Social History Smoking and tobacco/nicotine status: current every day tobacco/nicotine user Quit status (tobacco/nicotine): has quit using Second hand smoke exposure: No Alcohol intake: never Substance/Drug Use: never Adopted: No Caregiver/support person: No Lives independently: Yes Marital status: Single Current occupational status: disabled Current gender identity: Female Female Reproductive History: Spontaneous abortions: No Vitals/I&O/Wt Last Vital Signs Temp 97.7 F 04/26/24 10:42 Pulse 70 04/26/24 10:42 Resp 20 H 04/26/24 10:42 BP 127/60 04/26/24 10:42 Pulse Ox 98 04/26/24 10:42 O2 Del Method Room Air 04/26/24 10:42 Weight last 48 hrs Weight 214 lb Physical Exam Narrative: NIH score = 0 The patient is alert and oriented x 3. Speech fluent. Head normocephalic. Neck supple. Cranial nerves II through XII intact. Pupils 4 mm round reactive to light and accommodation. Extraocular movements intact. There were no nystagmus. Motor testing 5/5 bilaterally. There was no drift. There was no ataxia. Plantar responses flexor bilaterally. Sensory examination was intact to touch there was no extinction on double sensory stimulation. Patient reported chronic history of numbness in her lower extremities secondary to reports of arthritis in her feet and distal legs. Throat clear. Lungs clear. Heart regular rhythm and rate. Extremities were negative for cyanosis. Pulses 2+ bilaterally. A&P Assessment and plan (1) TIA (transient ischemic attack): Impression: 1. Transient ischemic attack manifested as awakening from sleep with left foot numbness which progressed associated with chest pain and left arm numbness, symptoms resolved following nitroglycerin given in the emergency room. Since the patient's NIH score =0 on neurological assessment and patient's last known well was midnight on 04/25/2024 and the patient reports awakening at 5:45 AM on 04/26/2024 with left foot numbness, patient was not a candidate for intravenous thrombolytics and no intravenous thrombolytics were administered. 2. History of remote CVA 2013 3. History of chronic foot pain and history of foot surgeries bilaterally with amputation of the second digit of the left foot secondary to reported history of arthritis 4. Prediabetic 5. Hypothyroidism 6. Hypertension 7. Major depressive disorder with recurrent severe depression without psychotic features (patient currently denies being homicidal suicidal) 8. Nicotine dependence 9. Lumbar disc disease with radiculopathy 10. Chest pain Plan: 1. Please give patient stroke pamphlet 2. Recommend carotid duplex study and 2D echocardiogram if not performed recently 3. Recommend cardiac evaluation for complaints of chest pain with left arm numbness 4. Recommend discontinuing tramadol since this medication has been reported to be associated with seizures 5. Recommend discontinuing Celebrex since nonsteroidal anti-inflammatory medications other than aspirin have been reported to be associated with increased risk for heart disease and strokes 6. Agree with continuing aspirin and Lipitor if no contraindications per NIH H stroke protocol 7. Recommend occupational therapy, physical therapy and speech therapy evaluations 8. Recommend patient follow-up with psychiatry for history of major depression and posttraumatic stress disorder Consult Attestations Medical Necessity Statement: The patient was evaluated by neurology for acute care/code stroke emergency department room #5 Coding Level of Care Code 03924 Diagnoses TIA (transient ischemic attack) G45.9
--- NOTE | 2024-04-26 12:09 | PC.NURSE ---
this RN assumed pt care at 1155 from IQ[facility] Powell.
[2024-04-26 12:13] VITALS: BP 132/62; PULSE 71; RESP 19; O2SAT 98
[2024-04-26 12:14] LABS: Basophils # 0.1 10^3/uL (0.0-0.1); Basophils % 0.8 %; Eosinophils # 0.1 10^3/uL (0.0-0.8); Hematocrit 35.5 % (36-47); Lymphocytes # 1.7 10^3/uL (0.8-4.8); Mean Corpuscular HGB Conc 30.7 g/dL (30-55); Mean Corpuscular Hemoglobin 22.4 pg (27-33); Mean Corpuscular Volume 72.9 fl (85-98); Mean Platelet Volume 9.8 fL (7.4-10.4); Monocytes # 0.4 10^3/uL (0.2-0.9); Monocytes % 5.4 %; Neutrophils # 5.51 10^3/uL (1.8-7.7); Neutrophils % 70.5 %; Nucleated Red Blood Cells % 0 %; Platelet Count 272 10^3/cmm (157-399); Red Blood Count 4.87 10^6/uL (3.85-5.65); Red Cell Distribution Width 19.4 % (12.1-15.1); White Blood Count 7.81 10^3/uL (3.29-11.43)
[2024-04-26 12:20] LABS: Charge for UA Resulting for Rev
--- NOTE | 2024-04-26 12:26 | ECG_ITS ---
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 Measurements Intervals [place] Rate: 69 P: 44 [place]: 167 QRS: 2 QRSD: 88 T: 43 QT: 402 QTc: 433 Interpretive Statements SINUS RHYTHM WITH SINUS ARRHYTHMIA Compared to ECG 04/26/2024 10:47:11 No significant changes Electronically Signed On 04-26-2024 17:35:40 CDT by George Reynolds M.D. [id number]
[2024-04-26 12:29] LABS: INR 0.88 (0.8-1.2)
[2024-04-26 12:30] LABS: Partial Thromboplastin Time 19.7 SECONDS (23.9-36.7)
[2024-04-26 12:35] LABS: Troponin(5th) Baseline 15 ng/L (0-10)
[2024-04-26 12:36] LABS: Alanine Aminotransferase 22 U/L (0-33); Albumin Level 4.2 g/dL (3.5-5.2); Alkaline Phosphatase 141 U/L (35-105); Anion Gap 17.1 (5-19); Aspartate Amino Transferase 16 U/L (0-32); Blood Urea Nitrogen 10 mg/dL (8-23); Calcium 8.9 mg/dL (8.5-10.5); Carbon Dioxide 23 mmol/L (22-29); Chloride 98 mmol/L (98-107); Creatinine Clr Calc Pharmacy 79.7472; Globulin 2.4 g/dL (1.3-4.6); Glomerular Filtration Rate 83.7 mL/min (90-130); Glucose 105 mg/dL (65-115); Osmolality Calculated 277 mOsm/kg (285-295); Potassium 4.1 mmol/L (3.5-5.1); Sodium 134 mmol/L (136-145); Total Bilirubin 0.2 mg/dL (0.15-1.2); Total Protein 6.6 g/dL (6.6-8.7)
[2024-04-26 12:40] LABS: Amphetamines Screen Urine Negative (Negative); Barbiturates Screen Urine Negative (Negative); Benzodiazepines Screen Urine Negative (Negative); Bilirubin Urine Negative (Negative); Blood Urine Negative (Negative); Cocaine Screen Urine Negative (Negative); Glucose Urine UA Negative (Normal); Ketones Urine Negative (Negative); Leukocyte Esterase Urine Negative (Negative); Nitrate Urine Negative (Negative); Opiate Screen Urine Negative (Negative); PCP Screen Urine Negative (Negative); Protein Urine Negative (Negative); Specific Gravity, Urine 1.006 (1.005-1.030); THC Screen Urine Positive (Negative); Urine Appearance Clear (CLEAR); Urine Color Yellow (Yellow); Urobilinogen Urine 0.2 mg/dL (Negative)
[2024-04-26 12:47] VITALS: BP 136/66; PULSE 73; RESP 21; O2SAT 95
[2024-04-26 13:44] VITALS: BP 139/68; PULSE 71; RESP 21; O2SAT 97
[2024-04-26 14:14] VITALS: BP 140/72; PULSE 77; RESP 20; O2SAT 97
[2024-04-26 16:29] VITALS: BP 162/90; PULSE 84; RESP 24; O2SAT 96
--- NOTE | 2024-04-26 17:29 | DCPLANNER ---
faxed mr and lexiscan orders to scheduling for er f/u
--- NOTE | 2024-04-26 18:29 | DCPLANNER ---
sent message to heart/lung for er f/u
== END 2024-04-26 16:30 | disposition home or self-care (01) ==
PROVIDERS: Emergency Provider Family Medicine
DX: R07.89 Other chest pain (principal); G45.9 Transient cerebral ischemic attack, unspecified; Z79.82 Long term (current) use of aspirin; Z72.0 Tobacco use; J44.9 Chronic obstructive pulmonary disease, unspecified; I10 Essential (primary) hypertension; Z86.73 Personal history of transient ischemic attack (TIA), and cerebral infarction without residual deficits
CPT/HCPCS: 36415; 36416; 70450; 71045; 80053; 80306; 81003; 81015; 82962; 84484; 85025; 85610; 85730; 93005; 99285

== ENCOUNTER → 2024-05-13 09:56 | Outpatient (BNVA) | payer MEDICARE, MEDICAID, SELFPAY ==
[2019-10-15 13:51] VITALS: BP 124/78; BMI 36.3
== END ==
PROVIDERS: PCP Family Medicine; Visit Provider Internal Medicine
DX: G45.9 Transient cerebral ischemic attack, unspecified (principal); I49.1 Atrial premature depolarization; I49.3 Ventricular premature depolarization; I48.91 Unspecified atrial fibrillation
CPT/HCPCS: 93225

== ENCOUNTER 2024-11-15 11:16 | Inpatient (IN) | payer MEDICARE, MEDICAID, SELFPAY ==
[2019-10-15 13:51] VITALS: BP 124/78; BMI 36.3
[2024-11-15] VITALS (8 sets, daily range): BP systolic 108–147; BP diastolic 75–109; PULSE 99–126; RESP 18–27; TEMP 36.5–36.6; O2SAT 92–98; BMI 38.2; BMI 41.0
--- NOTE | 2024-11-15 11:32 | XR_ITS ---
WS: [id number] Exam: XR chest 1V portable [id number] Date/Time of Exam: 11/15/2024 11:33 AM Reason For Exam: chest pain Comparison 04/26/2024. Mild cardiac enlargement with increased pulmonary vascularity. Prominent septal lines in the lateral lung zones. Some degree of mild cardiac decompensation is not excluded. No pleural effusions or consolidated infiltrates. The mediastinum is normal in contour. Normal bony elements. XR/XR chest 1V portable [id number] IMPRESSION: 1. Mild cardiac enlargement with increased pulmonary vascularity. Prominent sep jaida lines in the lateral lung zones. Cannot rule out early CHF.
--- NOTE | 2024-11-15 11:32 | ECG_ITS ---
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
--- NOTE | 2024-11-15 11:50 | CT_ITS ---
WS: [id number] CT LUMBAR SPINE, noncontrast. HISTORY: back pain TECHNIQUE: Contiguous 2.0 mm axial imaging are performed. Sagittal and coronal reformats are submitted and reviewed. All CT scans at [facility] use at least one of these dose optimization techniques: automated exposure control; mA and/or kV adjustment per patient size (includes targeted exams where dose is matched to clinical indication); or iterative reconstruction. IV contrast: None DLP: 883.03 mGy.cm COMPARISON: MRI lumbar spine 04/26/2021 Mild increase in the lumbar lordosis. Degenerative disc space narrowing and vacuum disc phenomenon at L5-S1. No fractures. L1-2: Normal. L2-3: Normal. L3-4: Mild disc bulging with ligamentum flavum and facet arthritis. Mild encroachment upon the subarticular recesses. L4-5: Diffuse annular disc bulging with a broad-based moderate RIGHT foraminal and extraforaminal disc protrusion. Smaller LEFT foraminal disc protrusion. Ligamentum flavum and facet arthritis. Moderate central with bilateral subarticular recess, RIGHT greater than LEFT. Mild bilateral foraminal stenosis. L5-S1: Osteophytic ridging with a central disc protrusion. Facet joint arthropathy causing mild narrowing of the LEFT foramen. There is mild disc encroachment upon the subarticular recesses. Moderate bilateral foraminal stenosis. Scattered plaque within the abdominal aorta. LEFT adrenal gland thickening is consistent with an adenoma. Liver appears enlarged but only a small portion of the liver is visualized. CT/CT lumbar spine wo con* [id number] IMPRESSION: 1. No acute lumbar spine fracture. 2. L4-5: Broad-based RIGHT foraminal extraforaminal disc protrusion and a smal ler LEFT foraminal disc protrusion. There is encroachment upon the subarticular recesses. Moderate central with bilateral subarticular recess stenosis, RIGHT greater than LEFT. Mild bilateral foraminal stenosis. 3. L5-S1: Moderate bilateral foraminal stenosis due to combination of disc, os teophyte and facet arthropathy. Greater stenosis on the LEFT.
--- NOTE | 2024-11-15 11:51 | W.ED.GENADLT ---
HPI - General Adult General: Chief complaint: Animal Bite Stated complaint: spider bite Time Seen by Provider: 11/15/24 11:19 Source: patient Mode of arrival: EMS Limitations: no limitations History of Present Illness: Patient is a 64-year-old female presents to ED today via EMS with concerns of a possible spider bite involving her right lower leg as well as lower back pain. She was reportedly seen by her primary care provider this morning and they won't do nothing so I came here . Patient is an extremely poor historian. She is not sure how long the spider bite has been present to the right lower leg but she thinks for several weeks. She states she has had chronic back pain for years . States she has not been able to walk over the past several months due to her back pain and usually uses a wheelchair at home as well as having her son assist her with transferring and toileting. She has chronic urinary retention x 2 years that she wears depends for. She arrives to the ED today in A-fib with RVR. No known history of A-fib however she does have a Holter monitor on file from June 2024 showing 11% of her beats were in atrial fibrillation with controlled ventricular response. She is not on any medications for this. PMH significant for GERD, TIA, COPD, chronic pain syndrome, HTN, lumbar radiculopathy, hyperlipidemia, obesity, thyroid disease. Relieving factors: none Associated symptoms: Deny chest pain, headache(s), malaise, nausea, rash, palpitations, syncope or vomiting Treatments prior to arrival: none Related Data Home Medications ?Medication ?Instructions ?Recorded ?Confirmed aspirin 81 mg tablet,delayed 81 mg PO DAILY 10/14/19 11/15/24 release (Adult Aspirin Regimen) famotidine 20 mg tablet 40 mg PO BID 11/23/22 11/15/24 levothyroxine 50 mcg tablet 50 mcg PO DAILY 11/23/22 11/15/24 hydrocodone 5 mg-acetaminophen 325 1 tab PO Q8H 11/15/24 11/15/24 mg tablet meclizine 25 mg tablet 25 mg PO TID 11/15/24 11/15/24 Previous Rx's ?Medication ?Instructions ?Recorded pregabalin 75 mg capsule 75 mg PO TID PRN back pain 30 days 11/17/22 #90 caps atorvastatin 40 mg tablet 40 mg PO DAILY #30 tabs 04/26/24 clopidogrel 75 mg tablet 75 mg PO DAILY #30 tabs 04/26/24 Allergies Allergy/AdvReac Type Severity Reaction Status Date / Time Penicillins Allergy ALGY-Anaphy Verified 11/15/24 11:30 laxis Review of Systems Const: Reports: chills and fatigue; Denies: fever(s), body aches or malaise Eyes: Denies: change in vision, blurry vision or photophobia ENMT: Denies: throat pain, odynophagia, nasal discharge, nasal congestion or sinus pain Card: Denies: chest pain, palpitations, irregular heart rhythm, lightheadedness, syncope, pre-syncope or orthopnea GI: Denies: abdominal pain, nausea, vomiting or diarrhea : Reports: urinary incontinence (chronic x 2 years); Denies: flank pain, difficulty voiding, dysuria, urinary frequency, urinary urgency or urinary hesitancy Musc: Reports: back pain and extremity pain; Denies: neck pain, joint swelling or joint redness Skin/Breast: Reports: other (reports spider bite ); Denies: rash Neuro: Reports: difficulty walking; Denies: headache(s) or dizziness PFSH ED PFSH: Medical History Nicotine dependence, cigarettes, with withdrawal COPD (chronic obstructive pulmonary disease) with acute bronchitis Nicotine dependence with current use Smoking Chronic pain syndrome Lumbar disc disease with radiculopathy Pedal edema Essential hypertension Major neurocognitive disorder post-CVA Generalized anxiety disorder Chronic post-traumatic stress disorder Major depressive disorder, recurrent severe without psychotic features Hypercholesterolemia Sleep apnea Depression PTSD (post-traumatic stress disorder) Vitamin D deficiency Hypothyroidism Neuropathy GERD (gastroesophageal reflux disease) Restless legs Disorder of bladder function Surgical History H/O bladder repair surgery implanted pacemaker device H/O: hysterectomy Hx of cholecystectomy H/O foot surgery bilateral Hx of tonsillectomy History of appendectomy H/O colonoscopy 2 yrs ago [facility] [place] Family History Mother CAD (coronary artery disease) Brother CAD (coronary artery disease) Grandfather Diabetes Sister Myocardial infarction Denies family history of Anesthesia complication Bleeding disorder Social History (Reviewed 11/15/24 @ 12:00 by DEBORA White Smoking and tobacco/nicotine status: current every day tobacco/nicotine user Quit status (tobacco/nicotine): has quit using Second hand smoke exposure: No Alcohol intake: never Substance/Drug Use: never Adopted: No Caregiver/support person: No Lives independently: Yes Marital status: Single Current occupational status: disabled Current gender identity: Female Female Reproductive History: Spontaneous abortions: No Physical Exam Const: COMMON NORMALS: no acute distress, patient oriented x3, no limitations, alert and well nourished GENERAL APPEARANCE: cooperative NUTRITIONAL APPEARANCE: obese ORIENTATION/CONSCIOUSNESS: Yes awake, Yes oriented to person, Yes oriented to place and Yes oriented to time OTHER: appears drowsy-states she has not been sleeping good due to her back pain HENMT: COMMON NORMALS: normocephalic and atraumatic HEAD & SCALP: normal to inspection, normocephalic and atraumatic Neck/C-Spine: COMMON NORMALS: full ROM, no lymphadenopathy, supple, no meningeal signs and no JVD Chest: COMMONS NORMALS: normal inspection of the chest Resp: COMMON NORMALS: normal respiratory effort and clear to auscultation bilaterally AUSCULTATION: clear to auscultation bilaterally Cardio: COMMON NORMALS: no JVD RATE: tachycardic RHYTHM: abnormal rhythm irregularly irregular GI: COMMON NORMALS: Normal to inspection, nondistended, normoactive bowel sounds present, Soft to palpation, non-tender, No hepatosplenomegaly present and no masses PALPATION: Yes Soft to palpation and Yes No hepatosplenomegaly present : COMMON NORMALS: Yes no CVA tenderness BLADDER/KIDNEY EXAM: Yes no CVA tenderness Back/Pelvis: COMMON NORMALS: no CVA tenderness LUMBAR SPINE/LOWER BACK: Yes ROM limited, Yes lumbar spinal tenderness, No paraspinal muscle tenderness and No paraspinal muscle spasm PELVIS: Yes buttocks normal and No sciatic notch tenderness SACROILIAC JOINTS: Yes SI joints normal SACRUM: no tenderness COCCYX: no tenderness Extremity: COMMON NORMALS: normal to inspection, capillary refill normal and no calf tenderness GENERAL: Yes normal exam except as noted RIGHT LOWER EXTREMITY: Yes lower leg OTHER: mild erythema and shallow ulcer to lateral aspect R lower leg; no streaking; no fluctuance or drainage Neuro: COMMON NORMALS: patient oriented x3, moves all extremities, no focal motor deficits and no sensory deficits noted SENSORIUM/ORIENTATION: Yes alert, Yes oriented to person, Yes oriented to place and Yes oriented to time MENINGEAL SIGNS: Yes no meningeal signs Skin: COMMON NORMALS: no rashes or lesions noted GENERAL SKIN EXAM: no rashes or lesions noted Course Consultations: Consultation #1: Dr. Whitley-accepts hospitalization; will go to [facility] Vital Signs: Vital signs: Vital Signs Temperature 97.9 F 11/15/24 11:19 Pulse Rate 111 H 11/15/24 12:36 Respiratory Rate 23 H 11/15/24 11:19 Blood Pressure 121/91 11/15/24 12:36 Pulse Oximetry 95 11/15/24 12:36 Oxygen Delivery Me thod Room Air 11/15/24 12:36 MDM - General Adult Medical Decision Making Patient is a 64-year-old female with multiple comorbidities here with a main complaint of a possible spider bite to her right lower extremity as well as acute on chronic lower back pain. She arrives to the ED in A-fib with RVR with rates in the 120s-130s. She was given two cardizem boluses and rates have not improved. cardizem drip will be started. Patient has a normal white count. She was found to be anemic with a hemoglobin of 8.8. Last comparison was roughly 6 months ago and it was 10.9. Hemoccult was negative. She has some minor elevations to her LFTs. Baseline troponin of 17. 2-hour is pending. She has no complaints of chest pain. CXR with mild cardiac enlargement with increased pulmonary vascularity. No known history of CHF. Will add a BNP. Did CT her lumbar spine. No concern at this time for abscess, discitis, osteomyelitis, cauda equina, etc. Will obtain blood cultures and start her on antibiotics for the cellulitis involving her right lower extremity. Will also ultrasound. Spoke to Dr. Whitley who will admit to the hospital. Medical Records I reviewed the patient's medical records. Lab Data I reviewed the patient's lab results. 11/15/24 12:05 11/15/24 12:05 Radiology Impressions Chest X-Ray 11/15/24 11:32 IMPRESSION: 1. Mild cardiac enlargement with increased pulmonary vascularity. Prominent septal lines in the lateral lung zones. Cannot rule out early CHF. Lumbar Spine CT 11/15/24 11:50 IMPRESSION: 1. No acute lumbar spine fracture. 2. L4-5: Broad-based RIGHT foraminal extraforaminal disc protrusion and a smaller LEFT foraminal disc protrusion. There is encroachment upon the subarticular recesses. Moderate central with bilateral subarticular recess stenosis, RIGHT greater than LEFT. Mild bilateral foraminal stenosis. 3. L5-S1: Moderate bilateral foraminal stenosis due to combination of disc, osteophyte and facet arthropathy. Greater stenosis on the LEFT. Laboratory Results WBC 9.76 10^3/uL (3.29-11.43) 11/15/24 12:05 RBC 4.47 10^6/uL (3.85-5.65) 11/15/24 12:05 Hgb 8.80 g/dL (11.27-16.99) L 11/15/24 12:05 Hct 31.5 % (36-47) L 11/15/24 12:05 MCV 70.5 fl (85-98) L 11/15/24 12:05 MCH 19.7 pg (27-33) L 11/15/24 12:05 MCHC 27.9 g/dL (30-55) L 11/15/24 12:05 RDW 20.4 % (12.1-15.1) H 11/15/24 12:05 Plt Count 294 10^3/cmm (157-399) 11/15/24 12:05 MPV 10.6 fL (7.4-10.4) H 11/15/24 12:05 Neut % (Auto) 78.4 % 11/15/24 12:05 Lymph % (Auto) 15.1 % 11/15/24 12:05 Dawes % (Auto) 4.7 % 11/15/24 12:05 Eos % (Auto) 0.7 % 11/15/24 12:05 Baso % (Auto) 0.9 % 11/15/24 12:05 Neut # (Auto) 7.65 10^3/uL (1.8-7.7) 11/15/24 12:05 Lymph # (Auto) 1.5 10^3/uL (0.8-4.8) 11/15/24 12:05 Dawes # (Auto) 0.5 10^3/uL (0.2-0.9) 11/15/24 12:05 Eos # (Auto) 0.1 10^3/uL (0.0-0.8) 11/15/24 12:05 Baso # (Auto) 0.1 10^3/uL (0.0-0.1) 11/15/24 12:05 Nucleated RBC % (auto) 0 % 11/15/24 12:05 Nucleated RBCs # 0.0 /100WBC 11/15/24 12:05 Sodium 130 mmol/L (136-145) L 11/15/24 12:05 Potassium 4.5 mmol/L (3.5-5.1) 11/15/24 12:05 Chloride 95 mmol/L (98-107) L 11/15/24 12:05 Carbon Dioxide 26 mmol/L (22-29) 11/15/24 12:05 Anion Gap 13.5 (5-19) 11/15/24 12:05 BUN 11 mg/dL (8-23) 11/15/24 12:05 Creatinine 0.5 mg/dL (0.5-0.9) 11/15/24 12:05 GFR Calculation 123.4 mL/min (90-130) 11/15/24 12:05 Glucose 121 mg/dL (65-115) H 11/15/24 12:05 Calculated Osmolality 271 mOsm/kg (285-295) L 11/15/24 12:05 Calcium 8.8 mg/dL (8.5-10.5) 11/15/24 12:05 Total Bilirubin 0.6 mg/dL (0.15-1.2) 11/15/24 12:05 AST 45 U/L (0-32) H 11/15/24 12:05 ALT 48 U/L (0-33) H 11/15/24 12:05 Alkaline Phosphatase 187 U/L (35-105) H 11/15/24 12:05 Troponin T Baseline 17 ng/L (0-10) H 11/15/24 12:05 Troponin T 120 Minute 17.30 ng/L (0-10) H 11/15/24 14:13 Delta Troponin T 0.30 ABS# (0-10) 11/15/24 14:13 Total Protein 6.3 g/dL (6.6-8.7) L 11/15/24 12:05 Albumin 4.0 g/dL (3.5-5.2) 11/15/24 12:05 Globulin 2.3 g/dL (1.3-4.6) 11/15/24 12:05 TSH 2.63 uIU/mL (0.27-4.20) 11/15/24 12:05 Influenza A (PCR) Negative (Negative) 11/15/24 12:35 Influenza Type B (PCR) Negative (Negative) 11/15/24 12:35 RSV (PCR) Negative (Negative) 11/15/24 12:35 SARS-CoV-2 (PCR) Negative (Negative) 11/15/24 12:35 All radiology interpretation(s) finalized by discharge Discharge Plan Discharge Patient Disposition: Admitted As Inpatient Clinical Impression: Lumbar disc disease with radiculopathy, Atrial fibrillation with RVR, Cellulitis of right leg without foot Condition: Stable Coding Level of Care Code ED Doctor Naturopathic for Zachary Tay
[2024-11-15] MEDS: dilTIAZem 5 mg/mL SDV 5 mL 10 MG IVP ×2 (12:08→12:52)
[2024-11-15 12:35] LABS: Basophils # 0.1 10^3/uL (0.0-0.1); Basophils % 0.9 %; Eosinophils # 0.1 10^3/uL (0.0-0.8); Eosinophils % 0.7 %; Hematocrit 31.5 % (36-47); Lymphocytes # 1.5 10^3/uL (0.8-4.8); Lymphocytes % 15.1 %; Mean Corpuscular HGB Conc 27.9 g/dL (30-55); Mean Corpuscular Hemoglobin 19.7 pg (27-33); Mean Corpuscular Volume 70.5 fl (85-98); Mean Platelet Volume 10.6 fL (7.4-10.4); Monocytes # 0.5 10^3/uL (0.2-0.9); Monocytes % 4.7 %; Neutrophils # 7.65 10^3/uL (1.8-7.7); Neutrophils % 78.4 %; Nucleated Red Blood Cells % 0 %; Platelet Count 294 10^3/cmm (157-399); Red Blood Count 4.47 10^6/uL (3.85-5.65); Red Cell Distribution Width 20.4 % (12.1-15.1); White Blood Count 9.76 10^3/uL (3.29-11.43)
--- NOTE | 2024-11-15 12:57 | PC.PHAR ---
patient barely responded to my questions to what she takes and doesn't take, called pharmacy and verified the most current meds and updated with last fill dates
[2024-11-15 13:13] LABS: Alanine Aminotransferase 48 U/L (0-33); Alkaline Phosphatase 187 U/L (35-105); Blood Urea Nitrogen 11 mg/dL (8-23); Calcium 8.8 mg/dL (8.5-10.5); Carbon Dioxide 26 mmol/L (22-29); Chloride 95 mmol/L (98-107); Creatinine Clr Calc Pharmacy 82.9171; Globulin 2.3 g/dL (1.3-4.6); Glomerular Filtration Rate 123.4 mL/min (90-130); Glucose 121 mg/dL (65-115); Osmolality Calculated 271 mOsm/kg (285-295); Sodium 130 mmol/L (136-145); Thyroid Stimulating Hormone 2.63 uIU/mL (0.27-4.20); Total Bilirubin 0.6 mg/dL (0.15-1.2); Total Protein 6.3 g/dL (6.6-8.7)
[2024-11-15 13:16] LABS: Anion Gap 13.5 (5-19); Potassium 4.5 mmol/L (3.5-5.1)
[2024-11-15 13:17] LABS: Aspartate Amino Transferase 45 U/L (0-32)
[2024-11-15 13:31] LABS: Troponin(5th) Baseline 17 ng/L (0-10)
--- NOTE | 2024-11-15 13:32 | ECG_ITS ---
[facility] Test Date: 2024-11-15 Pat Name: Kirsty Lee Department: Room: Gender: Female Mold Cooler: : 1960 Requested By: Genoveva Adhikari Order Number: [id number] Reading MD: ALICIA AVELAR Measurements Intervals Secor Rate: 104 P: 0 ND: 0 QRS: 3 QRSD: 90 T: 48 QT: 328 QTc: 432 Interpretive Statements ATRIAL FIBRILLATION WITH RAPID VENTRICULAR RESPONSE ABNORMAL RHYTHM ECG Compared to ECG 11/15/2024 11:34:47 No significant changes Electronically Signed On 11-19-2024 23:53:33 LIEN SEARCHER by ALICIA AVELAR [email or web address]
[2024-11-15 13:38] LABS: Influenza A NEGATIVE (Negative); Influenza B NEGATIVE (Negative); Respiratory Syncytial Virus Ce NEGATIVE (Negative); SARS-CoV-2 PCR NEGATIVE (Negative)
[2024-11-15] MEDS: ondansetron 2 mg/ML SDV 2 mL 4 MG IVP (14:14)
[2024-11-15] MEDS: morphine 4 mg/mL SDV 1 mL IVP (14:14)
--- NOTE | 2024-11-15 15:05 | USR_ITS ---
PROCEDURE INFORMATION: Exam: US Duplex Right Lower Extremity Veins, Limited Exam date and time: 11/15/2024 3:56 PM Age: 64 years old Clinical indication: Other: Redness; Additional info: Redness/pain TECHNIQUE: Imaging protocol: Real-time duplex ultrasound of the right extremity with 2-D nunez scale, color Doppler flow and spectral waveform analysis including responses to compression and other maneuvers (when performed) with image documentation. Limited exam was focused on the right lower extremity veins. COMPARISON: [place] [id number] ORTH 11/04/2022 8:43 AM FINDINGS: Right deep veins: Unremarkable. The common femoral, femoral, proximal profunda femoral and popliteal veins and the visualized segments of the posterior tibial and peroneal veins are patent without thrombus. Normal Doppler waveforms. Normal compressibility and/or augmentation response. Superficial veins: Greater saphenous vein at the saphenofemoral junction is patent without thrombus. Soft tissues: Unremarkable. US/[place] [id number] IMPRESSION: No evidence of deep vein thrombosis.
[2024-11-15 15:54] LABS: Add Urine Microscopic? NO
[2024-11-15 15:56] LABS: NT Pro B Type Natriuretic Pept 462 pg/mL (0-125)
[2024-11-15 15:57] LABS: Bilirubin Urine Negative (Negative); Blood Urine Negative (Negative); Glucose Urine UA Negative (Normal); Ketones Urine Negative (Negative); Leukocyte Esterase Urine Negative (Negative); Nitrate Urine Negative (Negative); Protein Urine Negative (Negative); Specific Gravity, Urine 1.013 (1.005-1.030); Urine Appearance Clear (CLEAR); Urine Color Yellow (Yellow)
[2024-11-15 16:08] LABS: Amphetamines Screen Urine Negative (Negative); Barbiturates Screen Urine Negative (Negative); Benzodiazepines Screen Urine Negative (Negative); Cocaine Screen Urine Negative (Negative); Opiate Screen Urine Positive (Negative); PCP Screen Urine Negative (Negative); THC Screen Urine Positive (Negative)
--- NOTE | 2024-11-15 16:17 | XRR_ITS ---
PROCEDURE INFORMATION: Exam: XR Right Hip Exam date and time: 11/15/2024 4:51 PM Age: 64 years old Clinical indication: Hip pain; Right hip TECHNIQUE: Imaging protocol: Radiologic exam of the right hip. Views: 1 view hip with pelvis when performed. COMPARISON: CT lumbar spine wo con* [id number] 11/15/2024 12:12 PM FINDINGS: Bones/joints: Single-view evaluation of the right hip demonstrates apparent normal alignment and no evidence fracture. Slight degenerative sclerosis. No advanced arthropathy. Soft tissues: Unremarkable. XR/XR hip RT 1V wo/w pel [id number] IMPRESSION: No acute plain radiographic abnormality within the limitations of this single-view study.
--- NOTE | 2024-11-15 16:19 | P.HP_ITS ---
Providers/Chief Complaint 2 Admitting Physician: Clif New MD Primary Care Provider: Sumeet Johnson DO Chief Complaint: spider bite History of Present Illness Kirsty Lee is a 64 year old female with past medical history of hypothyroidism, history of arrhythmia in the past, COPD, TIA presents to the ER today because of right leg pain which started around 4 days ago when her son was trying to help her get into her recliner. Pain is more so in the right hip going down to her anterior part of the ankle. In the ER she was found to have A-fib with RVR hence hospital service was consulted. Patient denies any chest pain but complains of mild difficulty in breathing getting worse on exertion for last 3 to 4 days. Denies any nausea, vomiting, headache, dizziness. Denies any diarrhea. Last bowel movement 2 days ago. Review of Systems 2 General: Reports: 10 or more systems reviewed and unremarkable except in HPI and below Const: Denies: fever(s), chills, body aches, change in appetite, change in weight, malaise, night sweats, diaphoresis, change in sleep pattern, daytime sleepiness or snoring Eyes: Denies: change in vision, blurry vision, photophobia, eye discomfort or eye discharge ENMT: Denies: throat pain, enlarged tonsils, hoarseness, mouth pain, oral sores, dry mouth, tinnitus, nasal congestion or post nasal drip Card: Denies: chest pain, palpitations, irregular heart rhythm, edema, swelling of feet/ankles, lightheadedness, syncope, pre-syncope, dyspnea on exertion, orthopnea, leg pain with exertion or acrocyanosis Resp: Denies: dyspnea, productive cough, non-productive cough, wheezing, stridor, pain on inspiration, change in phlegm color, hemoptysis or chest congestion GI: Denies: abdominal pain, nausea, vomiting, hematemesis, coffee ground emesis, dysphagia, heartburn, diarrhea, constipation, bloating, GI cramping, change in bowel habits, pain on defecation, hematochezia or melena : Denies: flank pain, dysuria, urinary frequency, urinary urgency, urinary hesitancy, nocturia or hematuria Musc: Denies: neck pain, back pain, extremity pain, joint pain, joint swelling, joint redness, joint stiffness or limited range of motion Neuro: Denies: headache(s), numbness in extremities, weakness in extremities, sensory changes, lack of coordination, difficulty walking, frequent falls, dizziness, vertigo, confusion, Slurred speech present, difficulty communicating thoughts or seizure-like activity Psych: Denies: anxiety, depression, mood swings, panic attacks, hopelessness or irritability Endo: Denies: polyuria, polydipsia, tired all the time, cold intolerance, excessive sweating, flushing or heat intolerance Abbe/Lymph: Denies: easy bruising or easy bleeding All/Imm: Denies: tongue swelling, facial swelling or acute wheezing Medications/Allergies Home Medications ?Medication ?Instructions ?Recorded ?Confirmed ?Last Taken ?Type aspirin 81 mg tablet,delayed 81 mg PO DAILY 10/14/19 0 11/15/24 11/15/24 History release (Adult Aspirin Regimen) pregabalin 75 mg capsule 75 mg PO TID PRN back pain 3 0 days 11/17/22 11/15/24 11/15/24 Rx #90 caps famotidine 20 mg tablet 40 mg PO BID 11/23/2211/15/24 History levothyroxine 50 mcg tablet 50 mcg PO DAILY 11/23/22 0 11/15/24 11/15/24 History atorvastatin 40 mg tablet 40 mg PO DAILY #30 tabs 08/0 11/1811/15/24 11/15/24 Rx clopidogrel 75 mg tablet 75 mg PO DAILY #30 tabs 08/0 11/1811/15/24 11/15/24 Rx hydrocodone 5 mg-acetaminophen 325 1 tab PO Q8H 11/15/24 11/15/24 History mg tablet meclizine 25 mg tablet 25 mg PO TID 11/15/24 Unknown History Allergies Allergy/AdvReac Type Severity Reaction Status Date / Time Penicillins Allergy ALGY-Anaphy Verified 11/15/24 11:30 laxis PFSH Acute 2 PFSH: Medical History Nicotine dependence, cigarettes, with withdrawal COPD (chronic obstructive pulmonary disease) with acute bronchitis Nicotine dependence with current use Smoking Chronic pain syndrome Lumbar disc disease with radiculopathy Pedal edema Essential hypertension Major neurocognitive disorder post-CVA Generalized anxiety disorder Chronic post-traumatic stress disorder Major depressive disorder, recurrent severe without psychotic features Hypercholesterolemia Sleep apnea Depression PTSD (post-traumatic stress disorder) Vitamin D deficiency Hypothyroidism Neuropathy GERD (gastroesophageal reflux disease) Restless legs Disorder of bladder function Surgical History H/O bladder repair surgery implanted pacemaker device H/O: hysterectomy Hx of cholecystectomy H/O foot surgery bilateral Hx of tonsillectomy History of appendectomy [facility] [place] Family History Mother CAD (coronary artery disease) Brother CAD (coronary artery disease) Grandfather Diabetes Sister Myocardial infarction Denies family history of Anesthesia complication Bleeding disorder Social History Smoking and tobacco/nicotine status: current every day tobacco/nicotine user Quit status (tobacco/nicotine): has quit using Second hand smoke exposure: No Alcohol intake: never Substance/Drug Use: never Adopted: No Caregiver/support person: No Lives independently: Yes Marital status: Single Current occupational status: disabled Current gender identity: Female Female Reproductive History: Spontaneous abortions: No Vitals/I&O/Wt Last Vital Signs Temp 97.9 F 11/15/24 11:19 Pulse 111 H 11/15/24 12:36 Resp 23 H 11/15/24 11:19 BP 121/91 11/15/24 12:36 Pulse Ox 95 11/15/24 12:36 O2 Del Method Room Air 11/15/24 12:36 Weight last 48 hrs Weight 104.326 kg Physical Exam 2 Narrative: General: In mild distress because of leg pain, AO x 3 HEENT: PERRLA, pupils bilaterally equal and reactive Chest: Normal vesicular breath sounds, no added sounds, equal good air entry bilaterally CVS: S1-S2 irregularly irregular, tachycardia, no murmurs, no gallops, no rubs Abdomen: Soft, nontender, no organomegaly, bowel sounds present Neuro: No focal deficits, no facial deformity, AO x3, power 5/5 in all limbs Extremity: Bilateral pulses present, mild edema up to the ankles 1+, small area of erythema in the posterior calf region in the right leg Data 11/15/24 12:05 11/15/24 12:05 A&P Assessment and plan (1) Atrial fibrillation with RVR: Does have history of diagnosis of A-fib couple of years ago on Holter monitor. Patient is not aware of the diagnosis. Not on rate controlling medications. Started on Cardizem drip in the ER. Transition to oral Cardizem 30 mg every 6 hour. Wean drip keeping heart rate below 100. Echocardiogram once heart rate below 100. Check TSH, D-dimer. Discussed anticoagulation in detail with the patient for stroke prevention given atrial fibrillation. She is agreeable. For now start on Lovenox 1 mg/kg body weight Q12 hourly. Patient does have anemia but does not give history of any active bleeding currently. Denies any diarrhea. In fact last bowel movement was 2 days ago and was well-formed. (2) Leg pain: Concern for lumbar disc disease with radiculopathy. Appreciate CT lumbar done in the ER. Follow-up lower limb Dopplers ordered in the ER. DVT less likely for now. [place] 1 mg every 6 hours as needed for pain control. Increase home dose of pregabalin to 75 mg twice daily. Patient denies any bowel or bladder accidents. Given extensive pain with concerns for radiculopathy for now start on dexamethasone 6 mg Q12 hourly. Check hip x-ray to rule out fracture though less likely. (3) Cellulitis of right leg without foot: Mild cellulitis of the posterior aspect of the calf muscles. Patient gives history of possible history of spider bite. Check MRSA swab. Given vancomycin in the ER. For now we will continue. Add meropenem. Patient does not have any leukocytosis. Does not have any fever we will plan to transition to oral antibiotics in next 24 to 48 hours. (4) Lumbar disc disease with radiculopathy: (5) Anemia: Hemoglobin down to 8.8. 10.9, 6 months ago. Denies any active bleeding, melena or hematemesis. Check stool for occult blood. For now start on Protonix twice daily, Carafate ACHS. Check iron panel, vitamin B12 and folate levels. Differential is consistent with hypochromic. Depending on the iron panel will start on IV iron supplementation. Last endoscopy in 2019 was reported normal other than some striped gastritis. (6) Transaminitis: High likelihood in setting of fatty liver. Check liver ultrasound. Does have elevated alkaline phosphatase as well. Patient denies any concerns for gallbladder colic for now. Check hepatitis panel, alcohol level, urine drug screen. Monitor daily. (7) Hyponatremia: Acute on chronic. Continue to monitor daily. Denies any symptoms for now. Plan Full code Cardiac diet Protonix for PUD prophylaxis Full dose Lovenox will be sufficient for DVT prophylaxis PDMP PDMP Reviewed: Not Reviewed Attestations 2 Medical Necessity Statement*: Admission for than 2 midnights for management of A-fib with RVR as patient remains on Cardizem drip, cellulitis of right lower limb, anemia while further workup is done to rule out GI bleed Diagnoses Atrial fibrillation with RVR I48.91 Leg pain M79.606 Cellulitis of right leg without foot L03.115 Lumbar disc disease with radiculopathy M51.16 Anemia D64.9 Transaminitis R74.01 Hyponatremia E87.1
[2024-11-15 16:31] LABS: Charge for UA Resulting for Rev
[2024-11-15] MEDS: FUROsemide 10 mg/mL SDV 4mL 40 MG IVP (16:35)
[2024-11-15] MEDS: dilTIAZem 100 MG in sodium chloride 0.9% (add-van) 100 ML IV (16:38)
[2024-11-15 16:52] LABS: Iron 18 ug/dL (37-145)
[2024-11-15 17:00] LABS: Percent Saturation 3.6 % (20-50); Total Iron Binding Capacity 491 mcg/dl; Unsaturated Iron Binding 473 ug/dL (112-347)
[2024-11-15 17:01] LABS: Estmated Average Glucose 143; Hemoglobin A1C 6.6 % (4.0-6.0)
[2024-11-15 17:09] LABS: Vitamin B12 856 pg/mL (232-1245)
[2024-11-15 17:34] LABS: Procalcitonin 0.15 ng/mL (0-0.5)
[2024-11-15 17:45] LABS: Alcohol Level < 10 mg/dL (0-10)
[2024-11-15] MEDS: meropenem 1,000 mg SDV 1000 MG IVP (17:53)
[2024-11-15] MEDS: dexamethasone 10 mg/mL INJ 6 MG IVP (17:54)
[2024-11-15] MEDS: sucralfate 1 gm/10 mL Oral Liq UDC PO ×2 (17:54→20:17)
[2024-11-15] MEDS: pantoprazole 40 mg SDV IVP (17:54)
[2024-11-15] MEDS: HYDROcodone-acetaminophen 5-325 mg Tablet 1 TAB PO (17:56)
[2024-11-15] MEDS: vancomycin 1,250 MG/250 ML PIGGYBACK 166.67 MG IV (17:56)
[2024-11-15] MEDS: dilTIAZem 30 mg Tablet PO ×2 (17:57→22:08)
[2024-11-15] MEDS: docusate sodium 100 mg Capsule PO (17:57)
[2024-11-15] MEDS: pregabalin 75 mg Capsule PO (17:57)
[2024-11-15] MEDS: enoxaparin 100 mg/mL Syringe SUBCUT (17:57)
--- NOTE | 2024-11-15 18:05 | ECG_ITS ---
[facility] Date: 2024-11-15 Pat Name: Kirsty Lee Department: Room: 107 Gender: Female [employer]: : 1960 Requested By: Genoveva Adhikari Order Number: [id number] Roxane MD: ALICIA AVELAR Measurements Intervals [place] Rate: 111 P: 0 RI: 0 QRS: 31 QRSD: 94 T: 26 QT: 332 QTc: 452 Interpretive Statements ATRIAL FIBRILLATION WITH RAPID VENTRICULAR RESPONSE ABNORMAL RHYTHM ECG Compared to ECG 11/15/2024 13:26:33 No significant changes Electronically Signed On 11-19-2024 23:51:59 [employer] DIRECTOR by ALICIA AVELAR [email or web address]
--- NOTE | 2024-11-15 19:37 | PC.NURSE ---
received from er into room 107,via stretcher,at 1730.pt is alert and awake.oriented to person,month,year.reminded of month.afib on monitor.cardizem drip at 5 mg/hr..increased to 7.5mg due to hr 110-120.bp stable.oriented to room environment.instructed to notify staff for any chest pain,sob,pain,or for any concerns at all.pt verb understanding of instructions
[2024-11-15] MEDS: iron sucrose 200 MG in sodium chloride 0.9% (100 ml) 100 ML 220 MG IV (20:17)
[2024-11-15] MEDS: flu vacc pf 24-25 (6 mos+) SYRINGE 45 MCG IM (20:22)
[2024-11-15] MEDS: pneumococcal (23 valent) SDV 0.5 mL IM (20:25)
[2024-11-15 20:44] LABS: Troponin 5 6HR 19.02 ng/L (0-10); Troponin 5 6HR Delta 2.02 ng/L (0-12)
[2024-11-15 20:57] LABS: Glucose Point of Care 218 mg/dL (70-110)
[2024-11-15] MEDS: levalbuterol 0.63 mg/3 mL Neb INHALATION (21:07)
[2024-11-15] MEDS: ipratropium 0.5 mg/2.5 mL Neb INHALATION (21:07)
[2024-11-16] VITALS (16 sets, daily range): BP systolic 116–155; BP diastolic 67–98; PULSE 91–116; RESP 16–27; TEMP 36.3–37; O2SAT 95–100
[2024-11-16] MEDS: meropenem 1,000 mg SDV 1000 MG IVP ×4 (00:47→23:31)
[2024-11-16] MEDS: dilTIAZem 100 MG in sodium chloride 0.9% (add-van) 100 ML 10 MG IV (01:09)
[2024-11-16] MEDS: ipratropium 0.5 mg/2.5 mL Neb INHALATION ×4 (02:08→19:36)
[2024-11-16] MEDS: levalbuterol 0.63 mg/3 mL Neb INHALATION ×4 (02:08→19:36)
[2024-11-16] MEDS: HYDROcodone-acetaminophen 5-325 mg Tablet 1 TAB PO ×3 (02:25→22:04)
[2024-11-16 02:36] LABS: Hepatitis B Core AB, Total Non-Reactive (Nonreactive); Hepatitis B Surface AB < 3.5 (11.5-1000); Hepatitis B Surface Antigen Non-Reactive (Nonreactive); Hepatitis C Virus Antibody Non-Reactive (Nonreactive)
[2024-11-16 02:56] LABS: Hepatitis A Antibody IgM Non-Reactive (Nonreactive)
[2024-11-16] MEDS: dilTIAZem 30 mg Tablet PO ×2 (03:32→09:15)
[2024-11-16] MEDS: morphine 4 mg/mL SDV 1 mL 2 MG IVP ×2 (03:33→09:27)
[2024-11-16] MEDS: pantoprazole 40 mg SDV IVP ×2 (03:34→16:37)
[2024-11-16 04:38] LABS: MRSA PCR OZH (swab) NOT DETECTED (Not Detecte)
[2024-11-16 04:52] LABS: Basophils % 0.1 %; Eosinophils % 0.3 %; Hematocrit 29.4 % (36-47); Lymphocytes # 0.7 10^3/uL (0.8-4.8); Lymphocytes % 9.3 %; Mean Corpuscular HGB Conc 27.9 g/dL (30-55); Mean Corpuscular Hemoglobin 19.3 pg (27-33); Mean Corpuscular Volume 69.3 fl (85-98); Mean Platelet Volume 10.9 fL (7.4-10.4); Monocytes # 0.2 10^3/uL (0.2-0.9); Monocytes % 2.5 %; Neutrophils % 87.4 %; Nucleated Red Blood Cells % 0.3 %; Platelet Count 279 10^3/cmm (157-399); Red Blood Count 4.24 10^6/uL (3.85-5.65); Red Cell Distribution Width 20.4 % (12.1-15.1)
[2024-11-16 05:22] LABS: Procalcitonin 0.15 ng/mL (0-0.5)
[2024-11-16 05:24] LABS: Alanine Aminotransferase 42 U/L (0-33); Albumin Level 3.8 g/dL (3.5-5.2); Alkaline Phosphatase 171 U/L (35-105); Aspartate Amino Transferase 33 U/L (0-32); Blood Urea Nitrogen 10 mg/dL (8-23); Calcium 8.8 mg/dL (8.5-10.5); Carbon Dioxide 22 mmol/L (22-29); Chloride 94 mmol/L (98-107); Chol HDL Ratio 2.95 mg/dL (0.0-4.40); Cholesterol 115 mg/dL (0-200); Creatinine Clr Calc Pharmacy 85.5326; Globulin 2.4 g/dL (1.3-4.6); Glucose 165 mg/dL (65-115); HDL Cholesterol 39 mg/dL (60-100); LDL Cholesterol Calculated 59 mg/dL (50-129); LDL HDL Ratio 1.51 RATIO (0.00-3.22); Osmolality Calculated 273 mOsm/kg (285-295); Phosphorus 2.8 mg/dL (2.5-4.5); Sodium 130 mmol/L (136-145); Total Bilirubin 0.6 mg/dL (0.15-1.2); Total Protein 6.2 g/dL (6.6-8.7); Triglycerides 86 mg/dL (0-150)
[2024-11-16 05:35] LABS: Folate Level 12.7 ng/mL (4.8-37.3)
[2024-11-16] MEDS: dexamethasone 10 mg/mL INJ 6 MG IVP (05:43)
[2024-11-16] MEDS: enoxaparin 100 mg/mL Syringe SUBCUT ×2 (05:50→17:16)
[2024-11-16] MEDS: sucralfate 1 gm/10 mL Oral Liq UDC PO ×4 (06:35→20:25)
[2024-11-16] MEDS: aspirin 81 mg EC Tablet PO (09:15)
[2024-11-16] MEDS: docusate sodium 100 mg Capsule PO ×2 (09:15→16:38)
[2024-11-16] MEDS: pregabalin 75 mg Capsule PO ×2 (09:15→16:38)
[2024-11-16] MEDS: atorvastatin 40 mg Tablet PO (09:15)
[2024-11-16] MEDS: levothyroxine 50 mcg Tablet PO (09:15)
[2024-11-16] MEDS: lactulose oral liq 20 gm/30 mL UDC 30 GM PO ×2 (12:58→20:24)
[2024-11-16] MEDS: dilTIAZem 30 mg Tablet 60 MG PO ×3 (12:58→23:32)
[2024-11-16] MEDS: amiodarone 150 MG/100 ML PREMIX 400 MG IV (12:59)
[2024-11-16 13:26] LABS: Ammonia 22 umol/L (11-51)
[2024-11-16 13:27] LABS: Acetaminophen < 5.0 ug/mL (10-30); INR 1.14 (0.8-1.2); Salicylate 0.4 mg/dL (3-10)
--- NOTE | 2024-11-16 14:51 | P.PN_ITS ---
Subjective 2 Subjective: No acute events overnight. Patient has remained hemodynamically stable and afebrile. Remains on Cardizem drip of 5. Heart rate running in mid 90s to 110s. Patient states her leg pain is better. States morphine is helping. Vitals/I&O/Wt Last Vital Signs Temp 97.5 F L 11/16/24 12:00 Pulse 113 H 11/16/24 13:19 Resp 16 11/16/24 13:19 BP 143/98 11/16/24 13:19 Pulse Ox 99 11/16/24 12:00 O2 Del Method Room Air 11/16/24 12:00 11/15/24 11/16/24 11/16/24 22:59 06:59 14:59 Intake Total 767.875 / 767.875 565.75 / 1333.625 220 / 220 Output Total 3250 / 3250 300 / 3550 Balance -2482.125 / -2482.125 265.75 / -2216.375 220 / 220 Weight last 48 hrs Weight 110.314 kg Weight 111.754 kg Weight 104.326 kg Physical Exam 2 Narrative: General: In no acute distress, AO x 2 to 3 HEENT: PERRLA, pupils bilaterally equal and reactive Chest: Normal vesicular breath sounds, no added sounds, equal good air entry bilaterally CVS: S1-S2 irregularly irregular, tachycardia, no murmurs, no gallops, no rubs Abdomen: Soft, nontender, no organomegaly, bowel sounds present Neuro: No focal deficits, no facial deformity, AO x3, power 5/5 in all limbs Extremity: Bilateral pulses present, mild edema up to the ankles 1+, small area of erythema in the posterior calf region in the right leg Urinary Catheter Management: Luis: Cath Placed During This Visit: yes Reason for Continuing Indwelling Catheter: Accurate Measurement of Urinary Output in Critically Ill Patients Urinary Catheter Date of Insertion: 11/15/24 Urinary Catheter Time of Insertion: 16:50 Data 11/16/24 02:52 11/16/24 02:52 Micro: Microbiology 11/15/24 15:45 Bacterial Antigens - Final Urine Kidney 11/15/24 20:14 Blood Culture - Preliminary Blood SPECIMEN COLLECTED 11/15/24 20:12 Blood Culture - Preliminary Blood SPECIMEN COLLECTED A&P Assessment and plan (1) Atrial fibrillation with RVR: Does have history of diagnosis of A-fib couple of years ago on Holter monitor. Patient is not aware of the diagnosis. Not on rate controlling medications. Try to wean Cardizem drip keeping heart rate below 100. Increase oral Cardizem to 60 mg every 6 hourly. Appreciate TSH, D-dimer. Check echocardiogram. If not improving will plan to try for digoxin load. Trying to avoid amiodarone given concerns for transaminitis due to ROSE. Discussed anticoagulation in detail with the patient for stroke prevention given atrial fibrillation. She is agreeable. For now start on Lovenox 1 mg/kg body weight Q12 hourly. Will transition to Eliquis on discharge. Patient does have anemia but does not give history of any active bleeding currently. Hemoglobin has remained stable. Denies any diarrhea. In fact last bowel movement was 2 days ago and was well-formed. (2) Leg pain: Concern for lumbar disc disease with radiculopathy. Appreciate CT lumbar done in the ER. Lower limb Dopplers negative for DVT. Hip x-ray negative for acute abnormality. Most likely concern for radiculopathy. Continue pregabalin 75 mg twice daily. Change [place] to 1 mg every 8 hour as needed, morphine to 1 mg every 6 hours as needed. Physical therapy. Out of bed to chair. (3) Cellulitis of right leg without foot: Mild cellulitis of the posterior aspect of the calf muscles. Patient gives history of possible history of spider bite. MRSA swab negative. DC vancomycin. Continue with meropenem for now. If no leukocytosis or fever in next 24 hours plan to transition to oral antibiotics. (4) Lumbar disc disease with radiculopathy: (5) Anemia: Hemoglobin down to 8.8. 10.9, 6 months ago. Denies any active bleeding, melena or hematemesis. Check stool for occult blood. Still pending. Hemoglobin has remained stable. Continue Protonix twice daily, Carafate ACHS. Appreciate iron panel consistent with severe iron deficiency anemia. Continue with IV iron supplementation. Normal vitamin B12 and folate levels. Last endoscopy in 2019 was reported normal other than some striped gastritis. (6) Transaminitis: High likelihood in setting of fatty liver. Appreciate liver ultrasound. Does have elevated alkaline phosphatase as well. Patient denies any concerns for gallbladder colic for now. Negative hepatitis panel, alcohol level, urine drug screen. Check Tylenol and salicylate level. Appreciate INR. Monitor daily. Check ammonia levels. (7) Hyponatremia: Acute on chronic. Continue to monitor daily. Denies any symptoms for now. Plan Constipation: Continue with bowel regimen with docusate. Add lactulose. Full code Cardiac diet Protonix for PUD prophylaxis Full dose Lovenox will be sufficient for DVT prophylaxis PDMP PDMP Reviewed: Last Reviewed 11/16/24 11:44 by Clif New MD Attestations 2 Medical Necessity Statement*: Requires further hospitalization for management of A-fib with RVR, acute anemia, transaminitis, left lower limb pain in setting of radiculopathy, possible mild cellulitis Diagnoses Atrial fibrillation with RVR I48.91 Leg pain M79.606 Cellulitis of right leg without foot L03.115 Lumbar disc disease with radiculopathy M51.16 Anemia D64.9 Transaminitis R74.01 Hyponatremia E87.1
--- NOTE | 2024-11-16 16:22 | USR_ITS ---
PROCEDURE INFORMATION: Exam: US Abdomen, Limited; Right Upper Quadrant Exam date and time: 11/16/2024 6:48 AM Age: 64 years old Clinical indication: Abnormal findings; Abnormal lab test; Elevated liver enzymes; Additional info: Transminitis, elevated bilirubin TECHNIQUE: Imaging protocol: Real time ultrasound of the abdomen with image documentation. Limited exam focused on the right upper quadrant. COMPARISON: CT lumbar spine wo con* [id number] 11/15/2024 12:12 PM FINDINGS: Liver: Liver is borderline enlarged and echogenic echotexture consistent with fatty infiltration. No masses detected. Gallbladder: Gallbladder is been removed. Common bile duct is not dilated measuring 4 mm. Biliary ducts: See Gallbladder finding. Pancreas: Pancreas is obscured by bowel gas. Right kidney: Right kidney is unremarkable. Portal venous: Normal hepatofugal flow within the portal vein. US/US liver [id number] IMPRESSION: 1. Borderline hepatomegaly with mild fatty infiltration. 2. Prior cholecystectomy. 3. Limited assessment of the pancreas.
[2024-11-16] MEDS: digoxin 250 mcg/ml INJ 2 mL 400 MCG IVP (16:37)
[2024-11-16] MEDS: morphine 4 mg/mL SDV 1 mL 1 MG IVP ×2 (16:38→23:29)
[2024-11-16] MEDS: iron sucrose 200 MG in sodium chloride 0.9% (100 ml) 100 ML 220 MG IV (20:26)
[2024-11-16] MEDS: digoxin 250 mcg/ml INJ 2 mL IVP (22:05)
[2024-11-17] VITALS (35 sets, daily range): BP systolic 43–136; BP diastolic 29–86; PULSE 94–163; RESP 17–37; TEMP 35.6–36.9; O2SAT 90–100
[2024-11-17] MEDS: ALPRAZolam 0.5 mg Tablet PO (00:43)
[2024-11-17] MEDS: HYDROMORPHONE HCL 0.5 MG/0.5 ML INJ 0.4 MG IVP ×2 (01:08→06:28)
[2024-11-17 01:24] LABS: Basophils % 0.1 %; Hematocrit 26.5 % (36-47); Lymphocytes # 1.8 10^3/uL (0.8-4.8); Lymphocytes % 13.9 %; Mean Corpuscular HGB Conc 29.4 g/dL (30-55); Mean Corpuscular Hemoglobin 20.2 pg (27-33); Mean Corpuscular Volume 68.5 fl (85-98); Mean Platelet Volume 10.3 fL (7.4-10.4); Monocytes # 0.8 10^3/uL (0.2-0.9); Monocytes % 6.5 %; Neutrophils # 10.17 10^3/uL (1.8-7.7); Neutrophils % 78.6 %; Nucleated Red Blood Cells # 0.1 /100WBC; Nucleated Red Blood Cells % 0.5 %; Platelet Count 288 10^3/cmm (157-399); Red Blood Count 3.87 10^6/uL (3.85-5.65); Red Cell Distribution Width 20.2 % (12.1-15.1); White Blood Count 12.92 10^3/uL (3.29-11.43)
[2024-11-17 01:47] LABS: Alanine Aminotransferase 41 U/L (0-33); Albumin Level 3.9 g/dL (3.5-5.2); Alkaline Phosphatase 157 U/L (35-105); Anion Gap 15.2 (5-19); Aspartate Amino Transferase 31 U/L (0-32); Blood Urea Nitrogen 10 mg/dL (8-23); Calcium 8.9 mg/dL (8.5-10.5); Carbon Dioxide 25 mmol/L (22-29); Chloride 94 mmol/L (98-107); Creatinine Clr Calc Pharmacy 85.5326; Glucose 159 mg/dL (65-115); Magnesium 2.1 mg/dL (1.7-2.3); Osmolality Calculated 272 mOsm/kg (285-295); Phosphorus 2.2 mg/dL (2.5-4.5); Potassium 4.2 mmol/L (3.5-5.1); Sodium 130 mmol/L (136-145); Total Bilirubin 0.6 mg/dL (0.15-1.2); Total Protein 5.9 g/dL (6.6-8.7)
[2024-11-17 01:52] LABS: D Dimer 0.74 ug/mLFEU (0-0.59)
[2024-11-17] MEDS: levalbuterol 0.63 mg/3 mL Neb INHALATION (03:23)
[2024-11-17] MEDS: ipratropium 0.5 mg/2.5 mL Neb INHALATION (03:24)
[2024-11-17] MEDS: digoxin 250 mcg/ml INJ 2 mL IVP (04:20)
[2024-11-17] MEDS: pantoprazole 40 mg SDV IVP ×2 (04:20→15:15)
[2024-11-17] MEDS: enoxaparin 100 mg/mL Syringe SUBCUT (04:21)
[2024-11-17] MEDS: morphine 4 mg/mL SDV 1 mL 1 MG IVP ×2 (04:26→08:26)
[2024-11-17] MEDS: dilTIAZem 30 mg Tablet 60 MG PO (05:48)
[2024-11-17] MEDS: HYDROcodone-acetaminophen 5-325 mg Tablet 1 TAB PO (05:48)
--- NOTE | 2024-11-17 05:54 | PC.NURSE ---
late entry, patient has been c/o of 07/04 right hip pain uncontrolled by hydrocodone and morphine, notified Dr Gilman, xanax po given X1, order placed for prn dilaudid, pain still uncontrolled, Dr Gilman updated, patient confused, requires constant reorientating, will continue to monitor
--- NOTE | 2024-11-17 06:33 | PC.NURSE ---
patient given prn dilaudid, patient hollering you aren't listening to me, I'm supposed to be on a morphine drip attempted to educate patient that we do not have morphine drips nor does she have morphine drip ordered, patient insisted that Dr New ordered morphine drip on a paper chart, attempted to educated patient that we do not have orders in paper charts, but that we are giving her the pain medicine she has ordered, HR 121, BP 145/85, continue to monitor
--- NOTE | 2024-11-17 08:12 | XRR_ITS ---
PROCEDURE INFORMATION: Exam: XR Abdomen Exam date and time: 11/17/2024 8:21 AM Age: 64 years old Clinical indication: Abdominal pain; Additional info: Abominal pain TECHNIQUE: Imaging protocol: Radiologic exam of the abdomen. Views: 2 Views. Upright and supine views. Total images: 1042 COMPARISON: [place] liver [id number] 11/16/2024 6:48 AM FINDINGS: Gastrointestinal tract: Bowel gas pattern is mildly distended but nonobstructive. Intraperitoneal space: Normal. No free air. Bones/joints: Unremarkable for age. Other findings: Mild stool burden. XR/XR abdomen min 2V [id number] IMPRESSION: 1. Bowel gas pattern is mildly distended but nonobstructive. 2. Mild stool burden.
[2024-11-17] MEDS: ondansetron 2 mg/ML SDV 2 mL 4 MG IVP (08:13)
[2024-11-17] MEDS: LORazepam 2 mg/mL INJ 1 mL 1 MG IVP (08:20)
[2024-11-17] MEDS: meropenem 1,000 mg SDV 1000 MG IVP ×2 (08:53→15:16)
[2024-11-17] MEDS: FUROsemide 10 mg/mL SDV 4mL 40 MG IVP (08:54)
[2024-11-17] MEDS: amiodarone 150 MG/100 ML PREMIX 400 MG IV (08:54)
--- NOTE | 2024-11-17 09:05 | PC.NURSE ---
Addendum entered by Hue Quijano RN 11/17/24 09:12: 0759 shift report pt restless in bed and in pain Dr notified, please see more nurse note below. Original Note: Pt stated she is not really feeling good right now, her pain is excruciating on her lower abdomen and right groin area and back area, she looked restless and ,rated pain at 15/10 pain scale. HR in 140s, afib w/ occ PVC's, BP-111/80, distended and large abdomen, active bowel sounds. Pt looked pale and diaphoretic, on room air Spo2-96%, pt stated of no relief on all pain meds given last night. notified Dr orders received for abdl xray, 1 mg ativan ivp once, amio bolus 150 mg, then start amio drip per protocol. prn morphine given, zofran given prn.
--- NOTE | 2024-11-17 09:11 | PC.NURSE ---
[id number] shift report pt restless in bed and in pain
--- NOTE | 2024-11-17 09:19 | CTR_ITS ---
PROCEDURE INFORMATION: Exam: CT Chest Without and With Contrast; Diagnostic Exam date and time: 11/17/2024 10:33 AM Age: 64 years old Clinical indication: Pain; Additional info: AMS, abd distension, right hip pain, please involve pelvis TECHNIQUE: Imaging protocol: Diagnostic computed tomography of the chest without and with contrast. Total images: 1255 Radiation optimization: All CT scans at this facility use at least one of these dose optimization techniques: automated exposure control; mA and/or kV adjustment per patient size (includes targeted exams where dose is matched to clinical indication); or iterative reconstruction. Contrast material: OMNI 350; Contrast volume: 100 ml; Contrast route: INTRAVENOUS (IV); COMPARISON: CR XR chest 1V portable [id number] 11/15/2024 11:36 AM RADIATION DOSE METRICS: Total DLP (mGy-cm): 2759.83 FINDINGS: Lungs: Nonspecific opacity in the right lung base, favoring atelectasis or pneumonia. Pleural spaces: Small right effusion and minimal left pleural effusion. Heart: Unremarkable. No cardiomegaly. No pericardial effusion. Lymph nodes: Unremarkable. No enlarged lymph nodes. Vasculature: Unremarkable. No aortic aneurysm. Bones/joints: Unremarkable. No acute fracture. Soft tissues: Unremarkable. PROCEDURE INFORMATION: Exam: CT Abdomen And Pelvis Without And With Contrast Exam date and time: 11/17/2024 10:33 AM Age: 64 years old Clinical indication: Pain; Additional info: AMS, abd distension, right hip pain, please involve pelvis TECHNIQUE: Imaging protocol: Computed tomography of the abdomen and pelvis without and with contrast. Radiation optimization: All CT scans at this facility use at least one of these dose optimization techniques: automated exposure control; mA and/or kV adjustment per patient size (includes targeted exams where dose is matched to clinical indication); or iterative reconstruction. Contrast material: OMNI 350; Contrast volume: 100 ml; Contrast route: INTRAVENOUS (IV); COMPARISON: CR XR abdomen min 2V [id number] 11/17/2024 8:21 AM RADIATION DOSE METRICS: Total DLP (mGy-cm): 2759.8 FINDINGS: Liver: Normal. No mass. Gallbladder and biliary ducts: Prior cholecystectomy noted. Pancreas: Normal. No ductal dilation. Spleen: Normal. No splenomegaly. Adrenal glands: Right adrenal gland not well visualized surrounded by heterogeneous fluid. Kidneys and ureters: Normal. No hydronephrosis. Stomach and bowel: Unremarkable. No obstruction. No mucosal thickening. Appendix: No evidence of appendicitis. Intraperitoneal space: Small amount of free fluid noted adjacent to the liver and extending into the right paracolic gutter. Retroperitoneal space: Large complex solid and cystic mass in the right retroperitoneum with soft tissue thickening, fatty stranding and fluid. This significantly displaces the right kidney anteriorly and compresses the IVC as well as displaces the aorta to the left of midline. No air is seen in this area. Findings felt to represent large retroperitoneal hemorrhage. Area measuring approximately 17.2 x 13.6 x 20.6 cm. Vasculature: Incidental phleboliths noted. Lymph nodes: Unremarkable. No enlarged lymph nodes. Urinary bladder: A Luis catheter within urinary bladder. Reproductive: Prior hysterectomy noted. 5.1 cm left ovarian cyst. Ultrasound follow-up in 6-12 months is recommended. (Reference: Geovanny). Bones/joints: Unremarkable. No acute fracture. Soft tissues: Subcutaneous medication injection sites are suspected. CT/CT abdpel wo/w [id number] IMPRESSION: 1. Small right effusion and minimal left pleural effusion. 2. Nonspecific opacity in the right lung base, favoring atelectasis or pneumonia. IMPRESSION: 1. 5.1 cm left ovarian cyst. Ultrasound follow-up in 6-12 months is recommended. (Reference: Geovanny). 2. Large complex solid and cystic mass in the right retroperitoneum with soft tissue thickening, fatty stranding and fluid. This significantly displaces the right kidney anteriorly and compresses the IVC as well as displaces the aorta to the left of midline. No air is seen in this area. Findings felt to represent large retroperitoneal hemorrhage. Area measuring approximately 17.2 x 13.6 x 20.6 cm. 3. Small amount of free fluid noted adjacent to the liver and extending into the right paracolic gutter. 4. Right adrenal gland not well visualized surrounded by heterogeneous fluid. REFERENCES: Geovanny et al. Management of Incidental Adnexal Findings on CT and MRI: A White Paper of the ACR Incidental Findings Committee, J Am Candy Radiol. 2019;17(2):248-254.
--- NOTE | 2024-11-17 10:30 | PC.NURSE ---
notified family Son Chucky was calling on pt's cellphone. informed son that his mother is going to ICU, updated on her condition.
[2024-11-17] MEDS: iohexol 350 mg/mL 500 mL Btl (per mL) IV (10:43)
--- NOTE | 2024-11-17 11:00 | PC.NURSE ---
Late entry Informed pt that she needs to take her morning oral pills. pt refused to take her oral pills and asked more to give her pain meds.
--- NOTE | 2024-11-17 11:10 | CTR_ITS ---
PROCEDURE INFORMATION: Exam: CT Abdomen And Pelvis Without Contrast Exam date and time: 11/17/2024 11:26 AM Age: 64 years old Clinical indication: Retroperitoneal bleed TECHNIQUE: Imaging protocol: Computed tomography of the abdomen and pelvis without contrast. Total images: 1681 Radiation optimization: All CT scans at this facility use at least one of these dose optimization techniques: automated exposure control; mA and/or kV adjustment per patient size (includes targeted exams where dose is matched to clinical indication); or iterative reconstruction. COMPARISON: CT ch abdpel wo/w [id number] 11/17/2024 10:33 AM RADIATION DOSE METRICS: Total DLP (mGy-cm): 1222.21 FINDINGS: Lungs: Nonspecific opacity in the right lung base, favoring atelectasis or pneumonia. Pleural spaces: Small right and minimal left pleural effusions. Liver: Normal. No mass. Gallbladder and biliary ducts: Prior cholecystectomy noted. Pancreas: Normal. No ductal dilation. Spleen: Normal. No splenomegaly. Adrenal glands: Right adrenal gland not well visualized due to large retroperitoneal hematoma obscuring this area. Kidneys and ureters: Dense delayed nephrogram of the right kidney with mild hydronephrosis secondary to mass effect on mid right ureter from large retroperitoneal hematoma. Stomach and bowel: Unremarkable. No obstruction. No mucosal thickening. Appendix: No evidence of appendicitis. Intraperitoneal space: Small amount of free fluid within the abdomen now measures mild increased density suggesting small hemoperitoneum. Retroperitoneal space: Large right retroperitoneal hematoma similar to exam performed earlier this same day. Vasculature: Incidental phleboliths noted. Lymph nodes: Unremarkable. No enlarged lymph nodes. Urinary bladder: A Luis catheter within urinary bladder. Reproductive: Left ovarian cyst previously discussed. Prior hysterectomy noted. Bones/joints: Unremarkable. No acute fracture. Soft tissues: Delayed imaging was performed to further assess small areas of contrast blush within the right psoas muscle area. No contrast pooling is seen in this area to suggest active hemorrhage. Findings may have represented small pseudoaneurysms. Subcutaneous medication injection sites are suspected. CT/CT abdomen pelvis wo con [id number] IMPRESSION: 1. Nonspecific opacity in the right lung base, favoring atelectasis or pneumonia. 2. Delayed imaging was performed to further assess small areas of contrast blush within the right psoas muscle area. No contrast pooling is seen in this area to suggest active hemorrhage. Findings may have represented small pseudoaneurysms. 3. Dense delayed nephrogram of the right kidney with mild hydronephrosis secondary to mass effect on mid right ureter from large retroperitoneal hematoma. 4. Small amount of free fluid within the abdomen now measures mild increased density suggesting small hemoperitoneum.
[2024-11-17] MEDS: protamine 10 mg/mL SDV 5 mL 50 MG IVP (11:54)
[2024-11-17 12:00] LABS: Hematocrit 19.4 % (36-47)
[2024-11-17] MEDS: sodium chloride 0.9% 1,000 ML 75 ML IV (12:19)
[2024-11-17] MEDS: sodium chloride 0.9% 100 mL Bag 50 ML IV ×2 (12:30→14:42)
--- NOTE | 2024-11-17 12:35 | PC.NURSE ---
Pt arrives to ICU from [facility]. Afib , rate in the 140's noted. Hypotension noted. Amiodarone infusing at 1 mg/min. IV sites left upper ar m and right upper arm. Emergent transfusion of PRBCs started. IVF started. Pt moaning that her lower back and her right hip/leg hurts. Unable to tanna pain mend at this time due to hypotension. HOB at 0 degrees. NOted a spot with a marker line circling it on her right calf, per report it is the spider bite.
--- NOTE | 2024-11-17 12:37 | PC.NURSE ---
transferred to icu bedside report provided to IQRA Welch.
[2024-11-17] MEDS: norepinephrine 4 MG/250 ML BAG 7.5 MG IV (12:45)
[2024-11-17] MEDS: sodium chloride 0.9% 1,000 ML 999 ML IV (12:45)
--- NOTE | 2024-11-17 13:00 | PC.NURSE ---
Hypotension continues. Levophed started. Right upper arm IV unable to flush, removed. Started 2 additional peripheral sites to accommodate the blood, amiodarone. Levophed and fluid bolus
[2024-11-17 13:39] LABS: Glucose Point of Care 154 mg/dL (70-110)
--- NOTE | 2024-11-17 14:00 | PC.NURSE ---
Pt pulled out both of left IV sites. Her response when asked why: The doctor told me I needed to . Dr Delgado notified, orders for oft wrist restraints received.
--- NOTE | 2024-11-17 15:00 | PC.NURSE ---
Unable to obtain another peripheral IV site due to infiltration of previous sites. Dr Rodgers notified. Central line to be inserted.
--- NOTE | 2024-11-17 15:30 | PM.ACPR ---
Procedure/Consent Time out: Time Out Performed: Yes Consent: Consent for Procedure: Emergency procedure Acute Procedures Central Line Placement: Left Femoral: Time out performed: Yes Patient placed on monitor/pulse ox: Yes MD prep: mask, gown and gloves Central line prep: Povidone-Iodine 1%, Chlorhexidine scrub and sterile drapes applied Local anesthesia used: lidocaine 1% Amount of anesthesia used (ml): 5 Ultrasound used for placement: Yes Central line lumen inserted: triple Post procedure: sutured in place, good blood return, all ports aspirated, flushed, capped and sterile dressing applied Post procedure x-ray: other (Not needed) Patient tolerated procedure: well Complications: none Epistaxis Control: Time out performed: Yes
--- NOTE | 2024-11-17 15:36 | PM.TDS ---
Transfer Summary Providers Date of Admission: 11/15/24 15:55 Date of Discharge/Transfer: 11/17/24 Attending Provider at Admission: Clif Addison MD Attending Provider at Transfer: Clif Addison MD Primary Care Provider: Sumeet Johnson DO Transfer Plans: Anticipated date of transfer: 11/17/24. Receiving Facility: [facility]. Receiving Provider: Dr. Sanchez. Diagnoses at Discharge Discharge Diagnosis (1) Atrial fibrillation with RVR: Status: Acute (2) Leg pain: Status: Acute (3) Cellulitis of right leg without foot: Status: Acute (4) Lumbar disc disease with radiculopathy: Status: Acute (5) Anemia: Status: Acute (6) Transaminitis: Status: Acute (7) Hyponatremia: Status: Acute Reason for Visit Reason for Visit spider bite Hospital Course Hospital Course Kirsty Lee is a 64 year old female with past medical history of hypothyroidism, history of arrhythmia in the past, COPD, TIA presents to the ER today because of right leg pain which started around 4 days ago when her son was trying to help her get into her recliner. Pain is more so in the right hip going down to her anterior part of the ankle. In the ER she was found to have A-fib with RVR hence hospital service was consulted. Patient denies any chest pain but complains of mild difficulty in breathing getting worse on exertion for last 3 to 4 days. Denies any nausea, vomiting, headache, dizziness. Denies any diarrhea. Last bowel movement 2 days ago. Patient was admitted to the hospital further evaluation and management of right hip pain along with A-fib with RVR. Hip pain at first was thought to be in setting of lumbar stenosis which was proved on lumbar CT from admission. She was started on Cardizem drip along with full dose anticoagulation after discussing in detail regarding merits and demerits for stroke prevention. Stool for occult blood was tested negative given her history of anemia. Patient's heart rate was difficult to control. She developed right-sided abdominal pain and pallor on 11/[address] with and without contrast of abdomen was done which was concerning for a significantly large right-sided retroperitoneal hematoma with displacement of aorta to the left, pressure obstruction to right kidney with mild hydronephrosis, occlusion of IVC. There was a concern for 2 small areas of contrast flush in right psoas muscle. Patient developed hemorrhagic shock for which she required up to 3 of Levophed on 3 units of blood transfusion. Patient's last dose of Lovenox was on 11/17 at 4 AM. Given concerns for hemorrhagic shock Lovenox was reversed with protamine. Repeat hemoglobin check at 12 noon before blood transfusion was 5.5. Given significantly large hematoma, development of hemorrhagic shock, requirement of vasopressors transfer to a tertiary center for possible IR embolization was discussed in detail with the patient son/DPOA Mr. Locke on the phone and he was agreeable. She has been accepted at [facility] by Dr. Sanchez for further evaluation and management. Physical Exam Narrative: General: In acute distress because of abdominal pain, AO x 2 to 3, pallor present, sick appearing HEENT: PERRLA, pupils bilaterally equal and reactive Chest: Normal vesicular breath sounds, no added sounds, equal good air entry bilaterally CVS: S1-S2 irregularly irregular, tachycardia, no murmurs, no gallops, no rubs Abdomen: Soft, distended, tenderness in right upper quadrant no organomegaly, bowel sounds present Neuro: No focal deficits, no facial deformity, AO x3, power 5/5 in all limbs Extremity: Bilateral pulses present, mild edema up to the ankles 1+, small area of erythema in the posterior calf region in the right leg, right leg swollen and upper thigh region Urinary Catheter Management: Luis: Cath Placed During This Visit: yes Reason for Continuing Indwelling Catheter: Other Urinary Catheter Date of Insertion: 11/15/24 Urinary Catheter Time of Insertion: 16:50 TS Data Studies Completed and Pending Pending at discharge Category Date Time Status Blood Culture Stat Lab 11/15/24 20:14 Results Complete Blood Count w/Auto AM LABS Lab 11/18/24 04:00 Ordered Comprehensive Metabolic Panel AM LABS Lab 11/18/24 04:00 Ordered Leukocyte Reduced RBC Stat Lab 11/17/24 11:49 Results Magnesium AM LABS Lab 11/18/24 04:00 Ordered Phosphorus AM LABS Lab 11/18/24 04:00 Ordered Type and Screen Stat Lab 11/17/24 11:49 Results Completed Studies During Hospitalization Category Date Time Status CT abdomen pelvis wo con [id number] Stat Cat Scan 11/17/24 11:[address] chest abdomen pelvis [CT ch abdpel wo/w [id number]] Cat Scan 11/17/24 09:[address] lumbar spine wo con* [id number] Stat Cat Scan 11/15/24 11:50 Completed XR abdomen min 2V [id number] Stat Exams 11/17/24 08:12 Completed XR chest 1V portable [id number] Urgent Exams 11/15/24 11:32 Completed XR hip RT 1V wo/[place] pel [id number] Routine Exams 11/15/24 16:17 Com[place] liver [id number] Routine Ultrasound 11/16/24 16:22 Completed US venous duplex lower extremity RT [CV venous duplex Ultrasound 11/15/24 15:05 [place] [id number]] Stat Laboratory Last Values WBC 12.92 10^3/uL (3.29-11.43) H 11/17/24 01:15 RBC 3.87 10^6/uL (3.85-5.65) 11/17/24 01:15 Hgb 5.50 g/dL (11.27-16.99) L* 11/17/24 11:49 Hct 19.4 % (36-47) L* 11/17/24 11:49 MCV 68.5 fl (85-98) L 11/17/24 01:15 MCH 20.2 pg (27-33) L 11/17/24 01:15 MCHC 29.4 g/dL (30-55) L D 11/17/24 01:15 RDW 20.2 % (12.1-15.1) H 11/17/24 01:15 Plt Count 288 10^3/cmm (157-399) 11/17/24 01:15 MPV 10.3 fL (7.4-10.4) 11/17/24 01:15 Neut % (Auto) 78.6 % 11/17/24 01:15 Lymph % (Auto) 13.9 % 11/17/24 01:15 [place] % (Auto) 6.5 % 11/17/24 01:15 Eos % (Auto) 0.0 % 11/17/24 01:15 Baso % (Auto) 0.1 % 11/17/24 01:15 Neut # (Auto) 10.17 10^3/uL (1.8-7.7) H 11/17/24 01:15 Lymph # (Auto) 1.8 10^3/uL (0.8-4.8) 11/17/24 01:15 [place] # (Auto) 0.8 10^3/uL (0.2-0.9) 11/17/24 01:15 Eos # (Auto) 0.0 10^3/uL (0.0-0.8) 11/17/24 01:15 Baso # (Auto) 0.0 10^3/uL (0.0-0.1) 11/17/24 01:15 Nucleated RBC % (auto) 0.5 % 11/17/24 01:15 Nucleated RBCs # 0.1 /100WBC 11/17/24 01:15 PT 15.40 SECONDS (12.1-14.9) H 11/16/24 12:56 INR 1.14 (0.8-1.2) 11/16/24 12:56 D-Dimer 0.74 ug/mLFEU (0-0.59) H 11/17/24 01:15 Sodium 130 mmol/L (136-145) L 11/17/24 01:15 Potassium 4.2 mmol/L (3.5-5.1) 11/17/24 01:15 Chloride 94 mmol/L (98-107) L 11/17/24 01:15 Carbon Dioxide 25 mmol/L (22-29) 11/17/24 01:15 Anion Gap 15.2 (5-19) 11/17/24 01:15 BUN 10 mg/dL (8-23) 11/17/24 01:15 Creatinine 0.6 mg/dL (0.5-0.9) 11/17/24 01:15 GFR Calculation 100.0 mL/min (90-130) 11/17/24 01:15 Glucose 159 mg/dL (65-115) H 11/17/24 01:15 POC Glucose 154 mg/dL (70-110) H 11/17/24 12:18 Estimat Average Glucose 143 11/15/24 12:05 Hemoglobin A1c 6.6 % (4.0-6.0) H 11/15/24 12:05 Calculated Osmolality 272 mOsm/kg (285-295) L 11/17/24 01:15 Lactic Acid 1.0 mmol/L (0.5-2.2) 11/15/24 20:12 Calcium 8.9 mg/dL (8.5-10.5) 11/17/24 01:15 Phosphorus 2.2 mg/dL (2.5-4.5) L 11/17/24 01:15 Magnesium 2.1 mg/dL (1.7-2.3) 11/17/24 01:15 Iron 18 ug/dL (37-145) L 11/15/24 12:05 TIBC 491 mcg/dl 11/15/24 12:05 % Saturation 3.6 % (20-50) L 11/15/24 12:05 Unsat Iron Binding 473 ug/dL (112-347) H 11/15/24 12:05 Total Bilirubin 0.6 mg/dL (0.15-1.2) 11/17/24 01:15 AST 31 U/L (0-32) 11/17/24 01:15 ALT 41 U/L (0-33) H 11/17/24 01:15 Alkaline Phosphatase 157 U/L (35-105) H 11/17/24 01:15 Ammonia 22 umol/L (11-51) 11/16/24 12:56 Troponin T Baseline 17 ng/L (0-10) H 11/15/24 12:05 Troponin T 120 Minute 17.30 ng/L (0-10) H 11/15/24 14:13 Delta Troponin T 0.30 ABS# (0-10) 11/15/24 14:13 Troponin T Hi Sens 6Hr 19.02 ng/L (0-10) H 11/15/24 20:12 Troponin T Hi Sens 6Hr Delta 2.02 ng/L (0-12) 11/15/24 20:12 NT-Pro-B Natriuret Pep 462 pg/mL (0-125) H 11/15/24 12:05 Total Protein 5.9 g/dL (6.6-8.7) L 11/17/24 01:15 Albumin 3.9 g/dL (3.5-5.2) 11/17/24 01:15 Globulin 2.0 g/dL (1.3-4.6) 11/17/24 01:15 Triglycerides 86 mg/dL (0-150) 11/16/24 02:52 Cholesterol 115 mg/dL (0-200) 11/16/24 02:52 LDL Cholesterol, Calc 59 mg/dL (50-129) 11/16/24 02:52 HDL Cholesterol 39 mg/dL (60-100) L 11/16/24 02:52 LDL/HDL Ratio 1.51 RATIO (0.00-3.22) 11/16/24 02:52 Cholesterol/HDL Ratio 2.95 mg/dL (0.0-4.40) 11/16/24 02:52 Vitamin B12 856 pg/mL (232-1245) 11/15/24 12:05 Folate 12.7 ng/mL (4.8-37.3) 11/16/24 02:52 Procalcitonin 0.15 ng/mL (0-0.5) 11/16/24 02:52 TSH 2.63 uIU/mL (0.27-4.20) 11/15/24 12:05 Urine Color Yellow (Yellow) 11/15/24 15:45 Urine Appearance Clear (CLEAR) 11/15/24 15:45 Urine pH 6.0 (5-7) 11/15/24 15:45 Ur Specific [place] 1.013 (1.005-1.030) 11/15/24 15:45 Urine Protein Negative (Negative) 11/15/24 15:45 Urine Glucose (UA) Negative (Normal) 11/15/24 15:45 Urine Ketones Negative (Negative) 11/15/24 15:45 Urine Blood Negative (Negative) 11/15/24 15:45 Urine Nitrate Negative (Negative) 11/15/24 15:45 Urine Bilirubin Negative (Negative) 11/15/24 15:45 Urine Urobilinogen 1.0 mg/dL (Negative) 11/15/24 15:45 Ur Leukocyte Esterase Negative (Negative) 11/15/24 15:45 Amorphous Sediment Not Reportable 11/15/24 15:45 Nasal MRSA (PCR) Not detected (Not Detecte) 11/16/24 02:30 Salicylates 0.4 mg/dL (3-10) L 11/16/24 12:56 Urine Opiates Screen Positive ng/mL (Negative) H 11/15/24 15:45 Acetaminophen < 5.0 ug/mL (10-30) L 11/16/24 12:56 Ur Barbiturates Screen Negative ng/mL (Negative) 11/15/24 15:45 Ur Phencyclidine Scrn Negative ng/mL (Negative) 11/15/24 15:45 Ur Amphetamines Screen Negative ng/mL (Negative) 11/15/24 15:45 U Benzodiazepines Scrn Negative ng/mL (Negative) 11/15/24 15:45 Urine Cocaine Screen Negative ng/mL (Negative) 11/15/24 15:45 U Marijuana (THC) Screen Positive ng/mL (Negative) H 11/15/24 15:45 Ethyl Alcohol < 10 mg/dL (0-10) 11/15/24 12:05 Hepatitis A IgM Ab Non-reactive (Nonreactive) 11/15/24 20:12 Hep Bs Antigen Non-reactive (Nonreactive) 11/15/24 20:12 Hep Bs Antibody < 3.5 (11.5-1000) L 11/15/24 20:12 Hep B Core Total Ab Non-reactive (Nonreactive) 11/15/24 20:12 Hepatitis C Antibody Non-reactive (Nonreactive) 11/15/24 20:12 Influenza A (PCR) Negative (Negative) 11/15/24 12:35 Influenza Type B (PCR) Negative (Negative) 11/15/24 12:35 RSV (PCR) Negative (Negative) 11/15/24 12:35 SARS-CoV-2 (PCR) Negative (Negative) 11/15/24 12:35 Blood Type A Negative 11/17/24 11:49 Rho(D) Type Rh negative 11/17/24 11:49 Antibody Screen Negative 11/17/24 11:49 Crossmatch See Detail 11/17/24 11:49 Radiology Impressions Chest X-Ray 11/15/24 11:32 IMPRESSION: 1. Mild cardiac enlargement with increased pulmonary vascularity. Prominent septal lines in the lateral lung zones. Cannot rule out early CHF. Lumbar Spine CT 11/15/24 11:50 IMPRESSION: 1. No acute lumbar spine fracture. 2. L4-5: Broad-based RIGHT foraminal extraforaminal disc protrusion and a smaller LEFT foraminal disc protrusion. There is encroachment upon the subarticular recesses. Moderate central with bilateral subarticular recess stenosis, RIGHT greater than LEFT. Mild bilateral foraminal stenosis. 3. L5-S1: Moderate bilateral foraminal stenosis due to combination of disc, osteophyte and facet arthropathy. Greater stenosis on the LEFT. Venous Duplex 11/15/24 15:05 IMPRESSION: No evidence of deep vein thrombosis. Hip X-Ray 11/15/24 16:17 IMPRESSION: No acute plain radiographic abnormality within the limitations of this single-view study. Liver Ultrasound 11/16/24 16:22 IMPRESSION: 1. Borderline hepatomegaly with mild fatty infiltration. 2. Prior cholecystectomy. 3. Limited assessment of the pancreas. Abdomen X-Ray 11/17/24 08:12 IMPRESSION: 1. Bowel gas pattern is mildly distended but nonobstructive. 2. Mild stool burden. Chest/Abdomen/Pelvis CT 11/17/24 09:19 IMPRESSION: 1. Small right effusion and minimal left pleural effusion. 2. Nonspecific opacity in the right lung base, favoring atelectasis or pneumonia. IMPRESSION: 1. 5.1 cm left ovarian cyst. Ultrasound follow-up in 6-12 months is recommended. (Reference: Geovanny). 2. Large complex solid and cystic mass in the right retroperitoneum with soft tissue thickening, fatty stranding and fluid. This significantly displaces the right kidney anteriorly and compresses the IVC as well as displaces the aorta to the left of midline. No air is seen in this area. Findings felt to represent large retroperitoneal hemorrhage. Area measuring approximately 17.2 x 13.6 x 20.6 cm. 3. Small amount of free fluid noted adjacent to the liver and extending into the right paracolic gutter. 4. Right adrenal gland not well visualized surrounded by heterogeneous fluid. REFERENCES: Geovanny et al. Management of Incidental Adnexal Findings on CT and MRI: A White Paper of the ACR Incidental Findings Committee, J Am Candy Radiol. 2019;17(2):248-254. ADDENDUM: 11/17/24 1114 ADDENDUM: On further review, there are 2 small areas of contrast blush within the right psoas muscle which may represent sites of active bleeding. Delayed imaging would be helpful. This report contains critical findings. The findings were verbally communicated via telephone conference at 11:11 AM INFORMATION SECURITY ENGINEER on 11/17/2024 with CLIF ADDISON. The findings were acknowledged and understood. Abdomen/Pelvis CT 11/17/24 11:10 IMPRESSION: 1. Nonspecific opacity in the right lung base, favoring atelectasis or pneumonia. 2. Delayed imaging was performed to further assess small areas of contrast blush within the right psoas muscle area. No contrast pooling is seen in this area to suggest active hemorrhage. Findings may have represented small pseudoaneurysms. 3. Dense delayed nephrogram of the right kidney with mild hydronephrosis secondary to mass effect on mid right ureter from large retroperitoneal hematoma. 4. Small amount of free fluid within the abdomen now measures mild increased density suggesting small hemoperitoneum. ADDENDUM: 11/17/24 1206 ADDENDUM: This report contains critical findings. The findings were verbally communicated via telephone conference at 12:03 PM INFORMATION SECURITY ENGINEER on 11/17/2024 with CLIF ADDISON. The findings were acknowledged and understood. Microbiology 11/17/24 10:10 Stool Occult Blood (FIT) - Final 11/17/24 04:00 Stool - Stool Aspirate Occult Blood (FIT) - Final 11/15/24 20:14 Blood Blood Culture - Preliminary NEGATIVE TO DATE 11/15/24 20:12 Blood Blood Culture - Preliminary NEGATIVE TO DATE 11/15/24 15:45 Urine Kidney Bacterial Antigens - Final Recent Clincial Data Last Vital Signs Temp 97.4 F L 11/17/24 14:31 Pulse 119 H 11/17/24 14:31 Resp 26 H 11/17/24 14:31 BP 105/81 11/17/24 14:31 Pulse Ox 91 11/17/24 14:31 O2 Del Method Room Air 11/17/24 13:00 Vital Signs Temp Pulse Resp BP Pulse Ox O2 Del Method 11/17/24 14:31 97.4 F L 119 H 26 H 105/81 91 11/17/24 13:00 156 H 24 H 98 Room Air 11/17/24 12:39 96.1 F L 150 H 37 H 84/59 11/17/24 12:25 97.1 F L 145 H 35 H 78/59 11/17/24 08:00 97.8 F 150 H 20 H 114/86 93 Room Air 11/17/24 07:48 160 H 20 H 98 Room Air 11/17/24 04:26 18 11/17/24 04:00 97.6 F 96 21 H 131/77 100 Intake & Output/Weight 11/15/24 11/16/24 11/17/2424/25 06:59 06:59 06:59 06:59 Intake Total 1333.625 / 3494.440 1985.75 / 1225.75 544.082 / 544.082 Output Total 3550 / 3550 2100 / 2100 Balance -2216.375 / -2216.375 -874.25 / -874.25 544.082 / 544.082 Weight 110.314 kg 112.4 kg Vitals Last Vital Signs Temp 97.4 F L 11/17/24 14:31 Pulse 119 H 11/17/24 14:31 Resp 26 H 11/17/24 14:31 BP 105/81 11/17/24 14:31 Pulse Ox 91 11/17/24 14:31 O2 Del Method Room Air 11/17/24 13:00 TS Medications Medications Acetaminophen (Acetaminophen 325 Mg Tablet) 650 mg PO Q6H PRN PRN Reason: Mild/Mod Pain Or Temp >/= 101 Hydrocodone Bitart/Acetaminophen (Hydrocodone-Acetaminophen 5-325 Mg Tablet) 1 tab PO Q8H PRN PRN Reason: MODERATE PAIN Last Admin: 11/17/24 05:48 Dose: 1 tab Aspirin (Aspirin 81 Mg Ec Tablet) 81 mg PO DAILY [facility] Last Admin: 11/17/24 12:28 Dose: Not Given Dexamethasone (Dexamethasone 10 Mg/Ml Inj) 6 mg IVP DAILY [facility] Last Admin: 11/17/24 12:28 Dose: Not Given Diltiazem HCl (Diltiazem 30 Mg Tablet) 90 mg PO Q6H [facility] Docusate Sodium (Docusate Sodium 100 Mg Capsule) 100 mg PO BID [facility] Last Admin: 11/17/24 12:28 Dose: Not Given Hydromorphone HCl (Hydromorphone Hcl 0.5 Mg/0.5 Ml Inj) 0.4 mg IVP Q4H PRN PRN Reason: pain scale 6-10 Iron Sucrose 200 mg/ Sodium (Chloride) 110 mls @ 220 mls/hr IV Q24H [facility] Stop: 11/19/24 20:29 Last Infusion: 11/16/24 21:08 Dose: Infused Amiodarone HCl/Dextrose (Nexterone) 360 mg in 200 mls @ 0 mls/hr IV .Q0M [facility]; Protocol Last Titration: 11/17/24 14:00 Dose: 0 mg/min, 0 mls/hr Sodium Chloride (Sodium Chloride 0.9%) 1,000 mls @ 75 mls/hr IV .[id number] [facility] Last Infusion: 11/17/24 14:00 Dose: 0 mls/hr Norepinephrine Bitartrate (Levophed) 4 mg in 250 mls @ 0 mls/hr IV .Q0M [facility]; Protocol Last Titration: 11/17/24 14:00 Dose: 0 mcg/min, 0 mls/hr Ipratropium [place] (Ipratropium 0.5 Mg/2.5 Ml Neb) 0.5 mg INHALATION Q6H.RESP [facility] Last Admin: 11/17/24 13:07 Dose: Not Given Lactulose (Lactulose Oral Liq 20 Gm/30 Ml Udc) 10 gm PO DAILY PRN; Protocol PRN Reason: Constipation (see protocol) Levalbuterol HCl (Levalbuterol 0.63 Mg/3 Ml Neb) 0.63 mg INHALATION Q6H.RESP [facility] Last Admin: 11/17/24 13:07 Dose: Not Given Levothyroxine Sodium (Levothyroxine 50 Mcg Tablet) 50 mcg PO DAILY [facility] Last Admin: 11/17/24 12:29 Dose: Not Given Magnesium Hydroxide (Magnesium Hydroxide 30 Ml Udc) 30 ml PO DAILY PRN; Protocol PRN Reason: Constipation (see protocol) Meropenem (Meropenem 1,000 Mg Sdv) 1,000 mg IVP Q8H [facility]; Protocol Last Admin: 11/17/24 15:16 Dose: 1,000 mg Morphine Sulfate (Morphine 4 Mg/Ml Sdv 1 Ml) 1 mg IVP Q4H PRN PRN Reason: SEVERE PAIN Last Admin: 11/17/24 08:26 Dose: 1 mg Ondansetron HCl (Ondansetron 2 Mg/Ml Sdv 2 Ml) 4 mg IVP Q6H PRN PRN Reason: vomiting, or N/V if npo Last Admin: 11/17/24 08:13 Dose: 4 mg Pantoprazole Sodium (Pantoprazole 40 Mg Sdv) 40 mg IVP Q12H [facility] Last Admin: 11/17/24 15:15 Dose: 40 mg Pregabalin (Pregabalin 75 Mg Capsule) 75 mg PO DAILY [facility] Last Admin: 11/17/24 12:29 Dose: Not Given Sodium Chloride (Sodium Chloride 0.9% 100 Ml Bag) 50 ml IV PRN PRN PRN Reason: Blood transfusion prime and flush Stop: 11/18/24 15:32 Sucralfate (Sucralfate 1 Gm/10 Ml Oral Liq Udc) 1 gm PO AC&BEDTIME [facility] Last Admin: 11/17/24 12:29 Dose: Not Given Discontinued Medications Hydrocodone Bitart/Acetaminophen (Hydrocodone-Acetaminophen 5-325 Mg Tablet) 1 tab PO Q4H PRN PRN Reason: MODERATE PAIN Last Admin: 11/16/24 06:34 Dose: 1 tab Alprazolam (Alprazolam 0.5 Mg Tablet) 0.5 mg PO ONCE ONE Stop: 11/17/24 00:28 Last Admin: 11/17/24 00:43 Dose: 0.5 mg Atorvastatin Calcium (Atorvastatin 40 Mg Tablet) 40 mg PO DAILY [facility] Last Admin: 11/16/24 09:15 Dose: 40 mg Dexamethasone (Dexamethasone 10 Mg/Ml Inj) 6 mg IVP Q12H [facility] Last Admin: 11/16/24 05:43 Dose: 6 mg Digoxin (Digoxin 250 Mcg/Ml Inj 2 Ml) 250 mcg IVP Q6H [facility] Stop: 11/17/24 04:01 Last Admin: 11/17/24 04:20 Dose: 250 mcg Digoxin (Digoxin 250 Mcg/Ml Inj 2 Ml) 400 mcg IVP NOW ONE Stop: 11/16/24 15:48 Last Admin: 11/16/24 16:37 Dose: 400 mcg Diltiazem HCl (Diltiazem 5 Mg/Ml Sdv 5 Ml) 10 mg IVP ONCE ONE Stop: 11/15/24 11:42 Last Admin: 11/15/24 12:08 Dose: 10 mg Diltiazem HCl (Diltiazem 5 Mg/Ml Sdv 5 Ml) 10 mg IVP ONCE ONE Stop: 11/15/24 12:39 Last Admin: 11/15/24 12:52 Dose: 10 mg Diltiazem HCl (Diltiazem 30 Mg Tablet) 30 mg PO Q6H [facility] Last Admin: 11/16/24 09:15 Dose: 30 mg Diltiazem HCl (Diltiazem 30 Mg Tablet) 60 mg PO Q6H [facility] Diltiazem HCl (Diltiazem 30 Mg Tablet) 30 mg PO ONCE ONE Stop: 11/16/24 11:11 Last Admin: 11/16/24 14:27 Dose: Not Given Diltiazem HCl (Diltiazem 30 Mg Tablet) 60 mg PO Q6H [facility] Last Admin: 11/17/24 05:48 Dose: 60 mg Diltiazem HCl (Diltiazem 30 Mg Tablet) 90 mg PO Q6H [facility] Last Admin: 11/17/24 12:29 Dose: Not Given Enoxaparin Sodium (Enoxaparin 100 Mg/Ml Syringe) 100 mg 1 mg/kg (100 mg) SUBCUT Q12H [facility] Last Admin: 11/17/24 04:21 Dose: 100 mg Furosemide (Furosemide 10 Mg/Ml Sdv 4ml) 40 mg IVP ONCE ONE Stop: 11/15/24 15:57 Last Admin: 11/15/24 16:35 Dose: 40 mg Furosemide (Furosemide 10 Mg/Ml Sdv 4ml) 40 mg IVP ONCE ONE Stop: 11/17/24 08:42 Last Admin: 11/17/24 08:54 Dose: 40 mg Hydromorphone HCl (Hydromorphone Hcl 0.5 Mg/0.5 Ml Inj) 0.4 mg IVP Q4H PRN PRN Reason: SEVERE PAIN Last Admin: 11/17/24 06:28 Dose: 0.4 mg Diltiazem HCl 100 mg/ Sodium (Chloride) 100 mls @ 0 mls/hr IV .Q0M [facility]; Protocol Last Titration: 11/16/24 19:50 Dose: Infused Vancomycin HCl (Vancocin) 1,250 mg in 250 mls @ 166.667 mls/hr IV ONCE ONE; Protocol Stop: 11/15/24 16:43 Last Infusion: 11/15/24 20:27 Dose: Infused Iron Sucrose 200 mg/ Sodium (Chloride) 110 mls @ 220 mls/hr IV Q24H [facility] Stop: 11/19/24 18:29 Last Infusion: 11/15/24 21:27 Dose: Infused Amiodarone HCl/Dextrose (Nexterone) 150 mg in 100 mls @ 400 mls/hr IV ONCE ONE Stop: 11/16/24 11:37 Last Infusion: 11/16/24 14:27 Dose: Infused Amiodarone HCl/Dextrose (Nexterone) 360 mg in 200 mls @ 0 mls/hr IV .Q0M [facility]; Protocol Amiodarone HCl/Dextrose (Nexterone) 150 mg in 100 mls @ 400 mls/hr IV ONCE ONE Stop: 11/17/24 08:56 Last Admin: 11/17/24 08:54 Dose: 400 mls/hr Sodium Chloride (Sodium Chloride 0.9% (100 Ml)) Confirm Administered Dose 200 mls @ as directed .ROUTE .STK-MED ONE Stop: 11/17/24 12:24 Norepinephrine Bitartrate (Levophed) Confirm Administered Dose 4 mg in 250 mls @ as directed .ROUTE .STK-MED ONE Stop: 11/17/24 12:34 Sodium Chloride (Sodium Chloride 0.9%) 1,000 mls @ 999 mls/hr IV .Q1H1M ONE Stop: 11/17/24 14:32 Last Admin: 11/17/24 12:45 Dose: 999 mls/hr Sodium Chloride (Sodium Chloride 0.9% (100 Ml)) Confirm Administered Dose 100 mls @ as directed .ROUTE .STK-MED ONE Stop: 11/17/24 15:02 Influenza Virus Vacc Trival Recomb (Flu Vacc Pf 24-25 (6 Mos+) Syringe) 45 mcg IM .ONCE ONE Stop: 11/15/24 19:56 Last Admin: 11/15/24 20:22 Dose: 45 mcg Iohexol (Iohexol 350 Mg/Ml 500 Ml Btl (Per Ml)) 0 ml IV ONCE ONE Stop: 11/17/24 10:43 Last Admin: 11/17/24 10:43 Dose: 100 ml Lactulose (Lactulose Oral Liq 20 Gm/30 Ml Udc) 30 gm PO TID [facility] Last Admin: 11/16/24 12:58 Dose: 30 gm Lactulose (Lactulose Oral Liq 20 Gm/30 Ml Udc) 30 gm PO TID [facility] Last Admin: 11/17/24 12:30 Dose: Not Given Lorazepam (Lorazepam 2 Mg/Ml Inj 1 Ml) 1 mg IVP ONCE ONE Stop: 11/17/24 08:06 Last Admin: 11/17/24 08:20 Dose: 1 mg Morphine Sulfate (Morphine 4 Mg/Ml Sdv 1 Ml) 4 mg IVP ONCE ONE Stop: 11/15/24 13:38 Last Admin: 11/15/24 14:14 Dose: 4 mg Morphine Sulfate (Morphine 4 Mg/Ml Sdv 1 Ml) 2 mg IVP Q4H PRN PRN Reason: SEVERE PAIN Last Admin: 11/16/24 09:27 Dose: 2 mg Ondansetron HCl (Ondansetron 2 Mg/Ml Sdv 2 Ml) 4 mg IVP ONCE ONE Stop: 11/15/24 13:38 Last Admin: 11/15/24 14:14 Dose: 4 mg Pneumococcal Polyvalent Vaccine (Pneumococcal (23 Valent) Sdv 0.5 Ml) 0.5 ml IM .ONCE ONE Stop: 11/15/24 19:56 Last Admin: 11/15/24 20:25 Dose: 0.5 ml Pregabalin (Pregabalin 75 Mg Capsule) 75 mg PO BID YOLY Last Admin: 11/17/24 12:30 Dose: Not Given Protamine Sulfate (Protamine 10 Mg/Ml Sdv 5 Ml) 50 mg IVP NOW ONE Stop: 11/17/24 12:01 Last Admin: 11/17/24 11:54 Dose: 50 mg Sodium Chloride (Sodium Chloride 0.9% 100 Ml Bag) 50 ml IV PRN PRN PRN Reason: Blood transfusion prime and flush Stop: 11/18/24 11:10 Last Admin: 11/17/24 14:42 Dose: 50 ml Allergies Penicillins Allergy (Verified 11/15/24 11:30) ALGY-Anaphylaxis Home Medications aspirin 81 mg tablet,delayed release (Adult Aspirin Regimen) 81 mg PO DAILY 10/14/19 [History Confirmed 11/15/24] pregabalin 75 mg capsule 75 mg PO TID PRN back pain 30 days #90 caps 11/17/22 [Rx Confirmed 11/15/24] famotidine 20 mg tablet 40 mg PO BID 11/23/22 [History Confirmed 11/15/24] levothyroxine 50 mcg tablet 50 mcg PO DAILY 11/23/22 [History Confirmed 11/15/24] atorvastatin 40 mg tablet 40 mg PO DAILY #30 tabs 04/26/24 [Rx Confirmed 11/15/24] clopidogrel 75 mg tablet 75 mg PO DAILY #30 tabs 04/26/24 [Rx Confirmed 11/15/24] hydrocodone 5 mg-acetaminophen 325 mg tablet 1 tab PO Q8H 11/15/24 [History Confirmed 11/15/24] meclizine 25 mg tablet 25 mg PO TID 11/15/24 [History Confirmed 11/15/24] Discharge Plan Discharge Patient Disposition: Home Condition: Stable Prescriptions: No Action aspirin [Adult Aspirin Regimen] 81 mg tablet,delayed release (DR/EC) 81 mg PO DAILY pregabalin 75 mg capsule 75 mg PO TID PRN (Reason: back pain) 30 Days Qty: 90 2RF hydrocodone-acetaminophen 5-325 mg tablet 1 tab PO Q8H meclizine 25 mg tablet 25 mg PO TID famotidine 20 mg tablet 40 mg PO BID levothyroxine 50 mcg tablet 50 mcg PO DAILY clopidogrel 75 mg tablet 75 mg PO DAILY Qty: 30 0RF atorvastatin 40 mg tablet 40 mg PO DAILY Qty: 30 0RF Discharge Orders: Transfer Out of Facility (Order); Ordered 11/17/24 Ordered By: Clif Addison Referrals: Sumeet Johnson DO [Primary Care Provider] - Patient Instructions: Opioid Safety Transfer Attestations Time Spent in Transfer Care: critical care time Critical Care Time (min): 100 Specific Discharge Activities: educating patient, educating and/or supporting family/caregiver, discussing with pcp/other providers, discussing with case therapist/social workers/dc planners, documenting/other paperwork and evaluating patient/reviewing data Status at Transfer: Cognitive status at transfer: mildly impaired cognition; Behavioral status at transfer: cooperative; Functional status at transfer: independent ambulation; Overall status at transfer: patient is not back to baseline Quality Metrics Clinical Quality Measures [ No reported AMI, CVA or VTE this stay] Coding Level of Care Code Critical Care >/= 30 minutes Critical care time (in minutes): 100 The high probability of a clinically significant, sudden or life threatening deterioration, as referenced in this documentation, required my full and direct attention, intervention and personal management. The critical care time shown is in addition to time spent performing any reported separately billable procedures and includes the following: [x] Data and vital sign review and interpretation [x] Patient assessment, examination and intervention [x] Medication orders and management [x] Patient/Family updates as able [x] Care Coordination and Documentation. Other Coding Information Procedural care (documented in another note) This patient has a high probability of clinically significant, sudden or life threatening deterioration of the patient's (neurological/pulmonary/cardiac/renal/ID/endocrine) systems required my full, direct attention, the highest level of physician preparedness for urgent intervention and personal management. I managed/supervised life or organ supporting interventions that required frequent physician assessment. I devoted my full attention in the ICU to the direct care of this patient for the period of time indicated above. Time I spent with family or surrogate(s) is included only if the patient was incapable of providing necessary information or participating in decision making. This time includes the following services provided: Telemetry review Placement of central line Hemodynamic interpretation, assessment and management Review and interpretation of CXR Review and interpretation of lab values Review and interpretation of microbiologic data and culture results Review of medications and administration Review and interpretation of Nutrition requirements and management Discussion of management with other consultants and services Clinical update to family members Diagnoses Atrial fibrillation with RVR I48.91 Leg pain M79.606 Cellulitis of right leg without foot L03.115 Lumbar disc disease with radiculopathy M51.16 Anemia D64.9 Transaminitis R74.01 Hyponatremia E87.1
--- NOTE | 2024-11-17 15:54 | PC.NURSE ---
pt belongings sent to icu 9
--- NOTE | 2024-11-17 16:10 | PC.NURSE ---
Report called to Shel[facility] CHO MetzParamjit. Report given to Bhupinder Scales RN.
--- NOTE | 2024-11-17 17:10 | PC.NURSE ---
[facility] here. Pt's care transferred to [facility]. Second unit of PRBCS finished. Pt transferring with the 3rd unit, amiodarone gtt. The IVF and Levophed with pt too, but remain off. MICU notified of pt's departure. The radiologist in [facility] notified of pt's departure as requested.
--- NOTE | 2024-11-17 17:11 | PC.NURSE ---
All belongings with pt at time of transfer.
--- NOTE | 2024-11-17 17:15 | PC.NURSE ---
Please see vital signs for transfusion vital signs.
--- NOTE | 2024-11-17 17:18 | PC.NURSE ---
Family notification of pt leaving facilty to [facility] via [facility]. Chucky Saenz, son at [phone]: phone answered: wrong #. attempted to try number again, no answer. tried her brother Layla Dickerson message: no longer in service.
--- NOTE | 2024-11-17 18:01 | PC.NURSE ---
Her son Chucky called. Chucky informed transfer completed. GIven room number and phone # to MICU at [facility].
== END 2024-11-17 17:10 | disposition short-term general hospital (02) | DRG 308 ==
LOC: ER 15:41 → CSU 15:55 → ICU 11-17 12:14
PROVIDERS: Internal Medicine; Admitting Provider Student in an Organized Health Care Education/Training Program; Emergency Provider Physician Assistant; PCP Family Medicine; Visit Provider Student in an Organized Health Care Education/Training Program
DX: I48.91 Unspecified atrial fibrillation (principal); K68.3 Retroperitoneal hematoma; R57.8 Other shock; L03.115 Cellulitis of right lower limb; E87.1 Hypo-osmolality and hyponatremia; N13.30 Unspecified hydronephrosis; Z68.41 Body mass index [BMI] 40.0-44.9, adult; M48.061 Spinal stenosis, lumbar region without neurogenic claudication; M54.16 Radiculopathy, lumbar region; D64.9 Anemia, unspecified; R74.01 Elevation of levels of liver transaminase levels; E03.9 Hypothyroidism, unspecified; J44.9 Chronic obstructive pulmonary disease, unspecified; Z86.73 Personal history of transient ischemic attack (TIA), and cerebral infarction without residual deficits; Z79.82 Long term (current) use of aspirin; Z79.891 Long term (current) use of opiate analgesic; Z79.02 Long term (current) use of antithrombotics/antiplatelets; K59.00 Constipation, unspecified; M25.551 Pain in right hip; Z90.49 Acquired absence of other specified parts of digestive tract; Z90.710 Acquired absence of both cervix and uterus; G25.81 Restless legs syndrome; K21.9 Gastro-esophageal reflux disease without esophagitis; G62.9 Polyneuropathy, unspecified; E55.9 Vitamin D deficiency, unspecified; G47.33 Obstructive sleep apnea (adult) (pediatric); F43.12 Post-traumatic stress disorder, chronic; F41.1 Generalized anxiety disorder; F17.210 Nicotine dependence, cigarettes, uncomplicated; E66.9 Obesity, unspecified; I10 Essential (primary) hypertension; G89.4 Chronic pain syndrome; R33.9 Retention of urine, unspecified; Z99.3 Dependence on wheelchair; M54.9 Dorsalgia, unspecified
CPT/HCPCS: 36415; 36416; 36430; 51702; 71045; 71260; 72131; 73501; 74019; 74176; 74178; 76705; 80053; 80061; 80306; 80307; 81003; 82140; 82274; 82607; 82746; 82962; 83036; 83540; 83550; 83605; 83735; 83880; 84100; 84145; 84443; 84484; 85014; 85018; 85025; 85378; 85610; 86403; 86705; 86706; 86709; 86803; 86850; 86900; 86920; 87040; 87340; 87637; 90471; 90686; 90732; 93005; 93971; 94640; 94664; 96365; 96366; 96367; 96372; 96375; 96376; 99285; A4222; A9270; J0283; J1100; J1160; J1171; J1650; J1756; J1940; J2060; J2185; J2270; J2405; J2470; J2720; J3370; J3490; J7030; J7614; J7644; P9016; P9040

== ENCOUNTER → 2025-02-18 15:25 | Outpatient (BNVA) | payer MEDICARE, MEDICAID, SELFPAY ==
[2019-10-15 13:51] VITALS: BP 124/78; BMI 36.3
== END ==
PROVIDERS: PCP Family Medicine; Visit Provider Family Medicine
DX: E03.9 Hypothyroidism, unspecified (principal); I10 Essential (primary) hypertension; I48.91 Unspecified atrial fibrillation; E78.00 Pure hypercholesterolemia, unspecified; R73.03 Prediabetes; J44.9 Chronic obstructive pulmonary disease, unspecified
CPT/HCPCS: 80053; 80061; 83036; 83880; 84439; 84443; 84481; 85025

== ENCOUNTER → 2025-03-27 16:33 | Outpatient (BNVA) | payer MEDICARE, MEDICAID, SELFPAY ==
[2019-10-15 13:51] VITALS: BP 124/78; BMI 36.3
== END ==
PROVIDERS: PCP Family Medicine; Visit Provider Internal Medicine Cardiovascular Disease
DX: R07.9 Chest pain, unspecified (principal)
CPT/HCPCS: 93005

== ENCOUNTER 2025-04-25 14:48 | Outpatient (CLI) | payer MEDICARE, MEDICAID, SELFPAY ==
[2019-10-15 13:51] VITALS: BP 124/78; BMI 36.3
--- NOTE | 2025-04-25 15:00 | USCV_ITS ---
Kirsty Lee Age: 65 Gender: F : 1960 Exam Date: 04/25/2025 14:57 Ordering Phys: Ravi Mckeon MD ([email or web address]) Technologist: ROSALEE Exam Location: [facility] [place] Indication: A-fib BP: 100 / 65 HR: 66 Rhythm: Sinus Technical Quality: Adequate MEASUREMENTS (Male / Female) Normal Values 2D ECHO LV Diastolic Diameter PLAX 4.9 cm 4.2 - 5.9 / 3.9 - 5.3 cm IVS Diastolic Thickness 1.0 cm 0.6 - 1.0 / 0.6 - 0.9 cm IVS Systolic Thickness 1.7 cm LVPW Diastolic Thickness 1.3 cm 0.6 - 1.0 / 0.6 - 0.9 cm LVPW Systolic Thickness 1.7 cm LVOT Diameter 2.1 cm LV Ejection Fraction 2D Teich 62.6 % LV Ejection Fraction MOD 4C 63.0 % LV Ejection Fraction MOD 2C 47.1 % LV Ejection Fraction 2C AL 50.7 % LA Diameter 4.1 cm RA Systolic Volume 4C AL 31.4 ml RA Systolic Volume 4C MOD 30.8 ml LA Sys Volume AL 48.5 cm cubed LA Sys Volume Index AL 21.9 cm cubed/m squared Aorta at Sinotubular Diameter 2.4 cm M-MODE LA Ao Ratio MM 1.7 AV Cusp Separation MM 1.7 cm DOPPLER AV Peak Velocity 144.0 cm/s LVOT Peak Velocity 92.0 cm/s AV Area Cont Eq vti 2.7 cm squared AV Area Cont Eq pk 2.3 cm squared MV Peak Velocity 87.0 cm/s MV Area PHT 4.0 cm squared Mitral E to A Ratio 0.8 TV Peak Velocity 213.5 cm/s TR Peak Velocity 240.0 cm/s TR Peak Gradient 23.0 mmHg TV Peak E Velocity 89.0 cm/s PV Peak Velocity 99.0 cm/s FINDINGS Left Ventricle Normal left ventricular size, systolic function and wall thickness, with no regional wall motion abnormalities. Left ventricular ejection fraction is estimated at 67 %. Grade I/IV diastolic dysfunction (abnormal relaxation filling pattern), normal to mildly elevated filling pressures. Right Ventricle The right ventricle is normal in size and function. Right Atrium The right atrium is normal in size. Left Atrium The left atrium is normal in size. Mitral Valve Mildly thickened mitral valve. No mitral valve stenosis. Mild mitral valve regurgitation. Aortic Valve Structurally normal aortic valve without significant sclerosis or stenosis. There is no aortic regurgitation. Tricuspid Valve Trace tricuspid valve regurgitation. Pulmonic Valve Structurally normal pulmonic valve without significant stenosis. There is no pulmonic regurgitation. Pericardium Normal pericardium without effusion. Aorta Normal ascending aorta dimension. IVC The inferior vena cava appears normal. CONCLUSIONS Normal left ventricular size, systolic function and wall thickness, with no regional wall motion abnormalities. Left ventricular ejection fraction is estimated at 67 %. Grade I/IV diastolic dysfunction (abnormal relaxation filling pattern), normal to mildly elevated filling pressures. Mildly thickened mitral valve. No mitral valve stenosis. Mild mitral valve regurgitation. Trace tricuspid valve regurgitation. There is no pericardial effusion. Right atrial pressure is around 5 mm of mercury. Ravi Mckeon MD (Electronically Signed) Final Date: 27 April 2025 18:07 S
== END 2025-04-25 14:49 | disposition home or self-care (01) ==
PROVIDERS: PCP Family Medicine; Visit Provider Internal Medicine Cardiovascular Disease
DX: I48.91 Unspecified atrial fibrillation (principal); I51.89 Other ill-defined heart diseases; I36.1 Nonrheumatic tricuspid (valve) insufficiency; I34.0 Nonrheumatic mitral (valve) insufficiency
CPT/HCPCS: 93306

== ENCOUNTER → 2025-05-05 15:44 | Outpatient (BNVA) | payer MEDICARE, MEDICAID, SELFPAY ==
[2019-10-15 13:51] VITALS: BP 124/78; BMI 36.3
== END ==
PROVIDERS: PCP Family Medicine; Visit Provider Internal Medicine Cardiovascular Disease
DX: I48.20 Chronic atrial fibrillation, unspecified (principal); Z79.01 Long term (current) use of anticoagulants; R07.89 Other chest pain; D64.9 Anemia, unspecified; K68.3 Retroperitoneal hematoma; I34.0 Nonrheumatic mitral (valve) insufficiency; I10 Essential (primary) hypertension; E78.00 Pure hypercholesterolemia, unspecified; F17.210 Nicotine dependence, cigarettes, uncomplicated; Z95.0 Presence of cardiac pacemaker; Z86.73 Personal history of transient ischemic attack (TIA), and cerebral infarction without residual deficits; R07.9 Chest pain, unspecified
CPT/HCPCS: 99214

== ENCOUNTER 2025-05-14 09:25 | Outpatient (CLI) | payer MEDICARE, MEDICAID, SELFPAY ==
[2019-10-15 13:51] VITALS: BP 124/78; BMI 36.3
--- NOTE | 2025-05-14 09:42 | ECG_ITS ---
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 The perfusion scan will be documented separately. DATA: Baseline heart rate was 67 beats per minute. Baseline blood pressure was 121/61 millimeters of mercury. Target heart rate was 153. Maximum heart rate achieved was 96. which was 62% of the predicted target heart rate. Maximum blood pressure was 135/71 millimeters of mercury. The reason for ending the test was completion of the protocol. The patient did not experience any symptoms. ELECTROCARDIOGRAM: BASELINE: Sinus rhythm. Normal axis. Otherwise, no ST-T changes suggestive of ischemia noted. No arrhythmia noted. EXERCISE: After Lexiscan injection, no ST-T changes suggestive of ischemic noted. No arrhythmia noted. CONCLUSION: Please note due to baseline abnormality of the EKG specificity and sensitivity of the EKG portion of LexiScan MIBI stress test will be low 1. EKG not suggestive of ischemia 2. Lexiscan injection unremarkable. 3. Perfusion scan will be documented separately. Electronically Signed On 06-07-2025 15:59:44 CDT by RAVI MCKEON [email or web address]
--- NOTE | 2025-05-14 09:42 | NMCV_ITS ---
NM thomas perf SPECT r/s* [id number] Kirsty Lee Age: 65 Gender: F : 1960 Exam Date: 05/14/2025 10:34 Ordering Phys: Ravi Mckeon MD ([email or web address]) Technologist: OXANA Martines Exam Location: [facility] Indications: CP STRESS TEST Please see separate stress test report in [facility] for full findings IMAGE PROTOCOL Rest/Stress 1 Lexiscan Day Radiopharmaceutical Dose (mCi) Administration Site Administered by Rest: Tc-99m 10.5 IV Michell Grier, BRINE SUPERVISOR Sestamibi Stress:Tc-99m 32.7 IV Michell Mathewsgle, BRINE SUPERVISOR Sestamibi Rest: 14-May-2025 60 Discovery 630 Stress: 14-May-2025 30 Discovery 630 0.4mg Lexiscan. Supine position only as patient was unable to lay prone. SPECT RESULTS Technical Quality: Good Raw Data Analysis: Normal Image Corrections: No attenuation or motion correction applied Summed Stress Score: 1 Summed Rest Score: 0 Summed Difference Score: 1 PERFUSION FINDINGS SPECT images demonstrate homogeneous tracer distribution throughout the myocardium. FUNCTIONAL RESULTS (calculated via Gated SPECT) Stress Image LV EF (%): 72 Stress EDV (mL):116 TID: 1.03 Stress ESV (mL):33 FUNCTIONAL FINDINGS: There is normal left ventricular systolic function. IMPRESSIONS Myocardial perfusion imaging is normal. Ravi Mckeon MD (Electronically Signed) Final Date: 14 May 2025 12:33 S
[2025-05-14 09:44] VITALS: BMI 38.6
[2025-05-14 11:29] VITALS: BP 126/66; PULSE 75
== END 2025-05-14 09:26 | disposition home or self-care (01) ==
PROVIDERS: PCP Family Medicine; Visit Provider Internal Medicine Cardiovascular Disease
DX: R07.9 Chest pain, unspecified (principal)
CPT/HCPCS: 36415; 78452; 93017; 96374; A9500; J2785

== ENCOUNTER → 2025-06-09 13:55 | Outpatient (BNVA) | payer MEDICARE, MEDICAID, SELFPAY ==
[2019-10-15 13:51] VITALS: BP 124/78; BMI 36.3
== END ==
PROVIDERS: PCP Family Medicine; Visit Provider Family Medicine
DX: J44.9 Chronic obstructive pulmonary disease, unspecified (principal); I10 Essential (primary) hypertension; I48.91 Unspecified atrial fibrillation; R73.03 Prediabetes; E03.9 Hypothyroidism, unspecified; E87.1 Hypo-osmolality and hyponatremia; D64.9 Anemia, unspecified; J44.0 Chronic obstructive pulmonary disease with (acute) lower respiratory infection; J20.9 Acute bronchitis, unspecified; E78.00 Pure hypercholesterolemia, unspecified
CPT/HCPCS: 80053; 83036; 83880; 84439; 84443; 84481; 85025

== ENCOUNTER → 2025-09-02 10:24 | Outpatient (BNVA) | payer MEDICARE, MEDICAID, SELFPAY ==
[2019-10-15 13:51] VITALS: BP 124/78; BMI 36.3
== END ==
PROVIDERS: PCP Family Medicine; Visit Provider Family Medicine
DX: E03.9 Hypothyroidism, unspecified (principal)
CPT/HCPCS: 84439; 84443; 84481